=== PATIENT | female | born 1950 | race Caucasian/White ===

== ENCOUNTER → 2024-03-09 | Outpatient (CLI) | payer MEDICARE, OTHER ==
--- NOTE | 2024-03-10 08:12 | MR ---
EXAMINATION TYPE: MR brain wo/w con DATE OF EXAM: 03/09/2024 COMPARISON: None at this location HISTORY: Neoplasm of parietal lobe of brain CONTRAST: Performed utilizing 7.5 mL intravenous Gadavist gadolinium contrast. TECHNIQUE: Multiplanar, multiecho imaging on a 3.0 Melody magnet is performed through the brain. Stud y is performed within 24 hours of arrival to the hospital. The craniovertebral junction is normal. The pituitary is normal. Diffusion-weighted imaging is performed. Small curvilinear area of increased signal appears to be wi thin the cortex of the right parietal occipital lobe. There is hyperintensity adjacent to a fluid lik e structure in the right parietal-occipital region. And T2-weighted sequences there is a hyperintense lobular lesion within the right parietal-occipital centrum semiovale this measures 3.4 x 3.5 x 3.2 cm. There is surrounding vasogenic edema which has lo mattie mass effect on the adjacent sulci and posterior right lateral ventricle. The church have a thin ri m of enhancement. The fluidlike signal appears more intermediate on the inversion recovery weighted s equences. A discrete enhancing internal nodule is not identified. Differential diagnosis would include primary and metastatic neoplasm. Infectious etiologies parasitic infection should be considered. Abscess formation is felt to be less likely given the fluidlike appe arance and thin wall. There is a punctate hyperintensity within the subcortical white matter left temporal lobe. Scattered punctate white matter changes are through the deep white matter of the frontal and parietal lobes garrett ng the alva radiata bilaterally. Some subcortical white matter changes are present. Ventricles and sulci are otherwise appropriate for the patient age. No entrapment or hydrocephalus is evident. There is displacement and compression of the occipital horn right lateral ventricle from th e vasogenic edema. The remainder the ventricles appear appropriately positioned without compression o r displacement. IMPRESSION: 1. Lobular ring-enhancing lesion with adjacent vasogenic edema. A primary neoplasm or solitary metast asis should be considered. Infectious etiologies including parasitic infection and abscess should als o be considered.
== END | disposition home or self-care (01) ==
LOC: RADMRIMAIN 03-03 16:10
PROVIDERS: ATTEND Family Medicine
DX: C71.3 Malignant neoplasm of parietal lobe (principal)
CPT/HCPCS: 70553; A9585

== ENCOUNTER 2024-03-10 22:42 | Emergency (ER) | payer MEDICARE, OTHER ==
[2024-03-10 23:25] VITALS: TEMP 98
[2024-03-11] MEDS: LORazepam 2 MG/ML INJ IV STA (01:54)
--- NOTE | 2024-03-11 03:48 | ED ---
General Adult HPI - General Chief complaint: Recheck/Abnormal Lab/Rx Stated complaint: left sided weakness tremors Time Seen by Provider: 03/10/24 23:03 Source: patient, family Mode of arrival: EMS Limitations: physical limitation - History of Present Illness Initial comments: 74-year-old female presented to the ED with complaints of neurologic complaints. Per patient and , approximately a month ago while they were in [place]. Patient had an episode where she had uncontrolled shaking of her left upper arm and left lower leg. This eventually went away spontaneously. For this, patient had an MRI performed at this facility yesterday. Reports yesterday asymptomatic however today came back because she started to have same symptoms today with uncontrolled shaking of the left upper arm and left lower leg which seem to be worse than the prior episode. No chest pains or shortness of breath no fever or chills. No other complaints at this time. - Related Data Allergies Allergy/AdvReac Type Severity Reaction Status Date / Time No Known Allergies Allergy Verified 03/10/24 22:48 Review of Systems ROS Statement: Those systems with pertinent positive or pertinent negative responses have been documented in the HPI. ROS Other: All systems not noted in ROS Statement are negative. Past Medical History Past Medical History: Hyperlipidemia History of Any Multi-Drug Resistant Organisms: None Reported Past Surgical History: Joint Replacement Additional Past Surgical History / Comment(s): right hip Past Psychological History: No Psychological Hx Reported Smoking Status: Former smoker Past Alcohol Use History: Occasional Past Drug Use History: None Reported General Exam Limitations: physical limitation General appearance: alert Eye exam: Present: PERRL, EOMI Neck exam: Present: normal inspection Respiratory exam: Present: normal lung sounds bilaterally Cardiovascular Exam: Present: regular rate GI/Abdominal exam: Present: soft Neurological exam: Present: alert, oriented X3, other (Patient has good extraocular motions. Good facial sensation. No facial nerve deficits. Able to shrug both shoulders without difficulties. Unable to test for pronator drift secondary to symptoms. Patient has tremulousness of left upper extremity and left lower extremity.) Skin exam: Present: warm, dry Course Vital Signs 03/10/24 03/10/24 03/11/24 22:48 23:50 01:02 Temperature 98.0 F Pulse Rate 77 86 88 Respiratory 18 18 16 Rate Blood Pressure 176/76 165/91 153/96 O2 Sat by Pulse 93 L 93 L 92 L Oximetry 03/11/24 02:00 Temperature Pulse Rate 87 Respiratory 20 Rate Blood Pressure 134/68 O2 Sat by Pulse 96 Oximetry Medical Decision Making - Medical Decision Making Was pt. sent in by a medical professional or institution (, JEFF, HR CONSULTANT, urgent care, hospital, or fci...) When possible be specific @ -No Did you speak to anyone other than the patient for history (EMS, parent, family, police, friend...)? What history was obtained from this source @ -No Did you review nursing and triage notes (agree or disagree)? Why? @ -I reviewed and agree with nursing and triage notes Were old charts reviewed (outside hosp., previous admission, EMS record, old EKG, old radiological studies, urgent care reports/EKG's, fci records)? Report findings @ -Reviewed MRI. For further details please see MDM. Differential Diagnosis (chest pain, altered mental status, abdominal pain women, abdominal pain men, vaginal bleeding, weakness, fever, dyspnea, syncope, headache, dizziness, GI bleed, back pain, seizure, CVA, palpatations, mental health, musculoskeletal)? @ -Differential Altered Mental Status: Hypoglycemia, DKA, hypercapnia, ETOH, overdose, CO poisoning, trauma, myxedema coma, HTN encephalopathy, infection, encephalitis, psychosis, intercranial hemorrhage, hepatic encephalopathy, meningitis, CVA, this is not meant to be an all-inclusive list EKG interpreted by me (3pts min.). @ -None X-rays interpreted by me (1pt min.). @ -None done CT interpreted by me (1pt min.). @ -None done U/S interpreted by me (1pt. min.). @ -None done What testing was considered but not performed or refused? (CT, X-rays, U/S, labs)? Why? @ -None What meds were considered but not given or refused? Why? @ -None Did you discuss the management of the patient with other professionals (professionals i.e. [facility] Resendiz, HR CONSULTANT, lab, RT, psych nurse, social science instructor, negative notcher, teacher, safety security officer, assistant case manager)? Give summary @ -Case discussed with Dr. Chao of [facility], who accepted transfer the patient. Was smoking cessation discussed for >3mins.? @ -No Was critical care preformed (if so, how long)? @ -Yes, 35 minutes secondary to brain mass with possible progressive neurologic symptoms Were there social determinants of health that impacted care today? How? (Homelessness, low income, unemployed, alcoholism, drug addiction, transportation, low edu. Level, literacy, decrease access to med. care, nursing home, rehab)? @ -No Was there de-escalation of care discussed even if they declined (Discuss DNR or withdrawal of care, Hospice)? DNR status @ -No What co-morbidities impacted this encounter? (DM, HTN, Smoking, COPD, CAD, Cancer, CVA, ARF, Chemo, Hep., AIDS, mental health diagnosis, sleep apnea, morbid obesity)? @ -None Was patient admitted / discharged? Hospital course, mention meds given and route, prescriptions, significant lab abnormalities, going to OR and other pertinent info. @ -Transfer 74-year-old female presented to the ED with intermittent episodes of uncontrollable jerking movements of left upper and left lower extremity. Reported an episode approximately month ago and had an MRI performed. MRI performed yesterday reveals a hyperintense lobular lesion within the right parietal occipital centrum semiovale which measures 3.4 x 3.5 x 3.2 cm. There is surrounding vasogenic edema which has local mass effect on adjacent sulcal and posterior right lateral ventricle. The church have a thin rim of enhancement. Undiagnosed new problem with uncertain prognosis? @ -No Drug Therapy requiring intensive monitoring for toxicity (Heparin, Nitro, Insulin, Cardizem)? @ -No Were any procedures done? @ -No Diagnosis/symptom? @ -Brain lesion Acute, or Chronic, or Acute on Chronic? @ -Acute on chronic Uncomplicated (without systemic symptoms) or Complicated (systemic symptoms)? @ -Complicated Side effects of treatment? @ -No Exacerbation, Progression, or Severe Exacerbation? @ -No Poses a threat to life or bodily function? How? (Chest pain, USA, CA, pneumonia, PE, COPD, DKA, ARF, appy, cholecystitis, CVA, Diverticulitis, Homicidal, Suicidal, threat to staff... and all critical care pts) @ -Yes Disposition Clinical Impression: Brain lesion Disposition: OTHER INSTITUTION NOT DEFINED Condition: Good Referrals: Mario Jimenez DO [Primary Care Provider] - 1-2 days Time of Disposition: 23:30 - Out of Hospital Transfer - Req. Specs Out of Hospital Transfer - Requested Specifics: Other Emergency Center ([facility])
[2024-03-11 05:43] VITALS: BP 129/69; PULSE 72; RESP 22
== END 2024-03-11 05:32 | disposition other institution (70) ==
LOC: EC 22:42
DX: G93.9 Disorder of brain, unspecified (principal); Z87.891 Personal history of nicotine dependence
CPT/HCPCS: 96374; 99291

== ENCOUNTER → 2024-03-31 | Outpatient (CLI) | payer MEDICARE, OTHER ==
--- NOTE | 2024-04-03 12:01 | MR ---
EXAMINATION TYPE: MR brain wo/w con DATE OF EXAM: 03/31/2024 3:39 PM CLINICAL INDICATION:Female, 74 years old with history of C79.31 SECONDARY MALIGNANT NEOPLASM OF BRAIN ; [facility], Brain and Lung cancer, Hx brain tumor removal 03-15-2024, Hx of seizures COMPARISON: 03/09/2024 TECHNIQUE: Multi planar, multi sequence imaging was performed through the brain including: T1, T2, In version recovery, susceptibility weighted imaging and gradient echo imaging and Diffusion weighted im aging. The patient was then given intravenous contrast and multi planar, T1 fat-saturation images wer e obtained. IV Contrast: 7.5 cc Gadavist FINDINGS: Posttreatment changes with High T1 signal in the right parietal region. This has has decrea sed in size compared to prior cystic lesion and now has central high T1 signal. Now measuring 30 x 28 mm, previously mass measured 32 x 38 mm. Postcontrast imaging for enhancement is limited due to intr insic high T1 signal of this area. There is areas of restricted diffusion within this suspected hemor rhagic/proteinaceous fluid collection. There remains vasogenic edema throughout the right parietal re gion. Susceptibility weighted imaging demonstrates blooming artifact around the margins of this lesio n. Additional scattered nonspecific white matter changes are seen throughout the brain. After administration of gadolinium, no additional abnormal enhancement is seen. The chauhan-white junctions, ventricular system, basal cisterns appear unremarkable. Diffusion-weighted imaging shows no evidence of restricted diffusion to suggest acute/subacute infarct. Intracranial ar terial flow voids are maintained. Midline structures show no abnormality. Scattered foci of high T2 s ignal intensity are seen within the periventricular white matter. The susceptibility weighted images do not reveal any evidence for micro-hemorrhage. The bone marrow signal is within normal limits. Postsurgical changes right parietal bone. Paranasal sinuses and mastoid air cells: No significant paranasal sinus disease. Visualized orbits: Orbital contents are intact. IMPRESSION: 1. Post treatment changes with decrease in size of the surgical bed compared to the previous cystic lesion. Area now demonstrating intrinsic high T1 signal likely representing proteinaceous/hemorrhagic contents. Evaluation for postcontrast enhancement is therefore limited due to its appearance however the size has decreased. Consider special subtraction imaging on follow-up MRI brain imaging. 2. No new abnormal areas of enhancement outside of the surgical bed.. 3. Nonspecific white matter changes, likely related to small vessel ischemic disease.
== END | disposition home or self-care (01) ==
LOC: RADMRIMAIN 14:23
PROVIDERS: ATTEND Radiology Radiation Oncology
DX: G93.89 Other specified disorders of brain (principal); C79.31 Secondary malignant neoplasm of brain; C34.90 Malignant neoplasm of unspecified part of unspecified bronchus or lung; Z98.890 Other specified postprocedural states; Z86.69 Personal history of other diseases of the nervous system and sense organs
CPT/HCPCS: 70553; A9585

== ENCOUNTER → 2024-04-17 | Outpatient (CLI) | payer MEDICARE, OTHER ==
--- NOTE | 2024-04-18 13:37 | PE ---
EXAMINATION TYPE: PET CT fusion skull to thigh DATE OF EXAM: 04/17/2024 CLINICAL INDICATION:Female, 74 years old with history of C34.12; TECHNIQUE: Following the intravenous administration of 12.77 mCi of F-18 FDG, whole body images are performed from the skull base to the midthigh. Images are reviewed on the computer in the coronal, axial, and sagittal planes. Reconstructed rotating images are created on independent workstation and reviewed on the computer. A non-contrast CT is performed in conjunction with the PET scan. Glucose level 111 mg/dL CT DLP: 511 mGycm, Automated exposure control for dose reduction was used. COMPARISON: CT None, PET/CT None, FINDINGS: Mediastinal SUV mean is 2.2. Hepatic parenchyma SUV mean is 3.0. SKULL BASE AND NECK: No suspicious radiotracer activity. CHEST, MEDIASTINUM, AND HILAR REGION: * Left upper lung cavitary lesion measuring 9.0 x 6.1 cm max SUV 24.3. * Left breast parenchymal uptake max SUV 4.9. * Soft tissue nodule in the left chest sidewall at the level of the diaphragm measuring up to 15 mm Max SUV 19.4. * Mildly elevated FDG activity within the left axillary lymph nodes which are not enlarged by size c riteria largest measuring 7 mm in short axis max SUV 2.7. * Left pulmonary hilum lymph node max SUV 11.4. * Left supraclavicular lymph node measuring 9 mm in short axis max SUV 8.6. * Linear uptake in the left lower lobe posterolaterally to atelectasis and/or airspace disease. ABDOMEN AND PELVIS: No suspicious radiotracer activity. MUSCULOSKELETAL STRUCTURES: No suspicious radiotracer activity. OTHER CT: Craniotomy changes with fixation hardware. Atherosclerosis of the arterial vasculature incl uding the coronary arteries. Mild aortic valve leaflet calcifications. Right hip arthroplasty appears intact. Lipomatous hypertrophy changes of the pancreatic head and neck and uncinate process. IMPRESSION: 1. Left upper lung cavitary mass concerning with a statically No evidence involving the left perihil ar region, left subclavicular region and along the left diaphragm inferiorly. Mild uptake with a left axillary lymph nodes which are not enlarged for size are indeterminate. 2. Abnormal FDG activity within the left fibroglandular tissue. Correlate with mammography for breas t malignancy.
== END | disposition home or self-care (01) ==
LOC: RADPETMAIN 11:39
PROVIDERS: ATTEND Radiology Radiation Oncology
DX: C34.12 Malignant neoplasm of upper lobe, left bronchus or lung (principal); R91.8 Other nonspecific abnormal finding of lung field
CPT/HCPCS: 78815; A9552

== ENCOUNTER 2024-04-30 12:00 | Inpatient (IN) | payer MEDICARE, OTHER ==
--- NOTE | 2024-04-30 12:06 | ED ---
SOB HPI - General Source: patient, family, RN notes reviewed Mode of arrival: wheelchair Limitations: no limitations - History of Present Illness MD Complaint: shortness of breath <Erica Huddleston - Last Filed: 04/30/24 12:05> - General Source: patient, family, RN notes reviewed Mode of arrival: wheelchair Limitations: no limitations - History of Present Illness MD Complaint: shortness of breath <Clifford Claire - Last Filed: 04/30/24 14:31> - General Chief Complaint: Shortness of Breath Stated Complaint: SOB Time Seen by Provider: 04/30/24 12:04 - History of Present Illness Initial Comments: Quick Note: This is a 74 year old female who presents to the emergency department for low oxygen saturation. Patient's states that the home health nurse found her oxygen to be in the 40s and they called her PCP who instructed her to go to the emergency department for evaluation. Patient reports shortness of breath over the last week. Denies any chest pain. (Erica Huddleston) Patient is a 74-year-old female present to the emergency department with weakness and dyspnea. Patient has had intermittent dyspnea over the past week. No cough. Patient is a poor historian and majority of history comes from family. Patient did have recent brain surgery with radiation around a month ago. PET scan showed large mass in the lung. Patient is still awaiting therapy for this. Patient did have left-sided weakness prior to arrival however that he has near resolved. (Clifford Claire) - Related Data Home Medications Medication Instructions Recorded Confirmed Atorvastatin [Lipitor] 10 mg PO HS 04/30/24 04/30/24 amLODIPine [Norvasc] 5 mg PO DAILY 04/30/24 04/30/24 dexAMETHasone [Decadron] See Taper PO DIRECTED 04/30/24 04/30/24 levETIRAcetam [Keppra] 500 mg PO BID 04/30/24 04/30/24 lisinopriL 40 mg PO DAILY 04/30/24 04/30/24 Allergies Allergy/AdvReac Type Severity Reaction Status Date / Time No Known Allergies Allergy Verified 04/30/24 13:17 Review of Systems ROS Other: All systems not noted in ROS Statement are negative. <Erica Huddleston - Last Filed: 04/30/24 12:05> ROS Other: All systems not noted in ROS Statement are negative. Constitutional: Denies: fever Eyes: Denies: eye pain ENT: Denies: ear pain Respiratory: Reports: as per HPI, dyspnea Cardiovascular: Denies: chest pain Endocrine: Denies: fatigue Gastrointestinal: Denies: abdominal pain Neurological: Reports: as per HPI, weakness. Denies: headache <Clifford Claire - Last Filed: 04/30/24 14:31> ROS Statement: Those systems with pertinent positive or pertinent negative responses have been documented in the HPI. Past Medical History Past Medical History: Hyperlipidemia History of Any Multi-Drug Resistant Organisms: None Reported Past Surgical History: Joint Replacement Additional Past Surgical History / Comment(s): right hip Past Psychological History: No Psychological Hx Reported Smoking Status: Former smoker Past Alcohol Use History: Occasional Past Drug Use History: None Reported <Erica Huddleston - Last Filed: 04/30/24 12:05> General Exam <Erica Huddleston - Last Filed: 04/30/24 12:05> Limitations: no limitations General appearance: alert, in no apparent distress Head exam: Present: normocephalic Eye exam: Present: normal appearance, PERRL, EOMI ENT exam: Present: normal oropharynx Neck exam: Present: normal inspection Respiratory exam: Present: normal lung sounds bilaterally Cardiovascular Exam: Present: regular rate, normal rhythm GI/Abdominal exam: Present: soft. Absent: tenderness Extremities exam: Present: normal inspection. Absent: pedal edema, calf tender ness Neurological exam: Present: alert, oriented X3, CN II-XII intact Expanded Neurological exam: Present: protecting the airway Speech: Present: fluid speech Cranial nerves: EOM's Intact: Normal Sensory exam: Upper Extremity Light Touch: Normal, Lower Extremity Light Touch: Normal Motor strength exam: RUE: 5, LUE: 5, RLE: 5, LLE: 4 Eye Response: (4) open spontaneously Motor Response: (6) obeys commands Verbal Response: (5) oriented Psychiatric exam: Present: normal affect, normal mood Skin exam: Present: normal color <Clifford Claire - Last Filed: 04/30/24 14:31> - General Exam Comments Initial Comments: Visual Physical Exam Vital signs reviewed General: Well-appearing, nontoxic, no acute distress. Head: Normocephalic, atraumatic Eyes: PERRLA, EOMI ENT: Airway patent Chest: Nonlabored breathing Skin: No visual rash, normal skin tone Neuro: Alert and oriented 3 Musculoskeletal: No gross abnormalities (Erica Huddleston) Course Vital Signs 04/30/24 04/30/24 12:07 13:24 Temperature 97.6 F Pulse Rate 74 62 Respiratory 16 18 Rate Blood Pressure 113/77 123/51 O2 Sat by Pulse 74 L 94 L Oximetry Medical Decision Making <Erica Huddleston - Last Filed: 04/30/24 12:05> - Lab Data Result diagrams: 04/30/24 12:38 04/30/24 12:40 <Clifford Claire - Last Filed: 04/30/24 14:31> - Medical Decision Making I performed the QuickNote portion of this chart. Signed Erica Huddleston PA-C. (Erica Huddleston) EKG interpreted by myself shows sinus rhythm with a rate of 68. AR 164. QRS 83. QT 359. QTc 377. Normal axis. Low QRS voltage. T wave inversion V1 through V3 Was pt. sent in by a medical professional or institution ([facility], CREATIVE PERFUMER, urgent care, hospital, or correction...) When possible be specific @ -No Did you speak to anyone other than the patient for history (EMS, parent, family, police, friend...)? What history was obtained from this source @ - is present and helps provide history including recent surgery Did you review nursing and triage notes (agree or disagree)? Why? @ -I reviewed and agree with nursing and triage notes Were old charts reviewed (outside hosp., previous admission, EMS record, old EKG, old radiological studies, urgent care reports/EKG's, correction records)? Report findings @ -PET scan reviewed with multiple lesion Differential Diagnosis (chest pain, altered mental status, abdominal pain women, abdominal pain men, vaginal bleeding, weakness, fever, dyspnea, syncope, headache, dizziness, GI bleed, back pain, seizure, CVA, palpatations, mental he alth, musculoskeletal)? @ -MDM differential dyspnea. MDM differential weakness differential Dyspnea: Coronary syndrome, arrhythmia, tamponade, asthma, COPD, pulmonary embolism, pneumonia, pneumothorax, pulmonary effusion, anaphylaxis, diabetic ketoacidosis, flailed chest, pulmonary contusion, diaphragmatic rupture, anemia, neuromuscular, this is not meant to be an all-inclusive list. Differential Weakness: Hypoglycemia, shock, sepsis, hyponatremia, anemia, infection, MS, ETOH, adverse medicine reaction, overdose, stroke, this is not meant to be an all-inclusive list. EKG interpreted by me (3pts min.). @ -As above X-rays interpreted by me (1pt min.). @ -None done CT interpreted by me (1pt min.). @ -CT scan of the brain shows right posterior parietal encephalomalacia with postsurgical changes. CT scan of the chest shows left upper lobe mass with central abscess or necrosis. Also concern for parenchymal changes right upper lobe U/S interpreted by me (1pt. min.). @ -None done What testing was considered but not performed or refused? (CT, X-rays, U/S, labs)? Why? @ -None What meds were considered but not given or refused? Why? @ -None Did you discuss the management of the patient with other professionals (professionals i.e. , PA, CREATIVE PERFUMER, lab, RT, psych nurse, social services analyst, computer lab assistant, teacher, signals officer, lead case manager)? Give summary @ -Case discussed with Dr. Hercules who did evaluate patient and will consult. Case also discussed with Dr. Espinoza who will admit covering Dr. Jimenez. Was smoking cessation discussed for >3mins.? @ -No Was critical care preformed (if so, how long)? @ -No Were there social determinants of health that impacted care today? How? (Homele ssness, low income, unemployed, alcoholism, drug addiction, transportation, low edu. Level, literacy, decrease access to med. care, assisted, rehab)? @ -No Was there de-escalation of care discussed even if they declined (Discuss DNR or withdrawal of care, Hospice)? DNR status @ -No What co-morbidities impacted this encounter? (DM, HTN, Smoking, COPD, CAD, Cancer, CVA, ARF, Chemo, Hep., AIDS, mental health diagnosis, sleep apnea, morbid obesity)? @ -Metastatic lung cancer Was patient admitted / discharged? Hospital course, mention meds given and route, prescriptions, significant lab abnormalities, going to OR and other pertinent info. @ -Patient presents with 1 week of dyspnea progressive as well as left-sided weakness today. Brain CT without new abnormalities, weakness likely related to postradiation swelling. This was discussed with patient's radiation oncologist. Patient chest x-ray shows lung mass with concern for infection. Blood culture and lactic acid and IV antibiotics have all been started. Infection concern at 1420. Patient does not meet SIRS criteria. Undiagnosed new problem with uncertain prognosis? @ -No Drug Therapy requiring intensive monitoring for toxicity (Heparin, Nitro, Insulin, Cardizem)? @ -No Were any procedures done? @ -No Diagnosis/symptom? @ -Dyspnea, left-sided weakness Acute, or Chronic, or Acute on Chronic? @ -Acute, acute Uncomplicated (without systemic symptoms) or Complicated (systemic symptoms)? @ -Default Side effects of treatment? @ -No Exacerbation, Progression, or Severe Exacerbation? @ -No Poses a threat to life or bodily function? How? (Chest pain, USA, MS, pneumonia, PE, COPD, DKA, ARF, appy, cholecystitis, CVA, Diverticulitis, Homicidal, Suicidal, threat to staff... and all critical care pts) @ -Threat to pulmonary and organ dysfunction and neurological (Clifford Claire) - Lab Data Lab Results 04/30/24 04/30/24 04/30/24 Range/Units 12:38 12:38 12:38 WBC 11.9 H (3.8-10.6) k/uL RBC 4.43 (3.80-5.40) m/uL Hgb 11.9 (11.4-16.0) gm/dL Hct 38.7 (34.0-46.0) % MCV 87.3 (80.0-100.0) fL MCH 26.9 (25.0-35.0) pg MCHC 30.8 L (31.0-37.0) g/dL RDW 20.7 H (11.5-15.5) % Plt Count 178 (150-450) k/uL MPV 8.2 Neutrophils % 89 % Lymphocytes % 7 % Monocytes % 2 % Eosinophils % 1 % Basophils % 0 % Neutrophils # 10.6 H (1.3-7.7) k/uL Lymphocytes # 0.8 L (1.0-4.8) k/uL Monocytes # 0.3 (0-1.0) k/uL Eosinophils # 0.1 (0-0.7) k/uL Basophils # 0.0 (0-0.2) k/uL Hypochromasia Slight Anisocytosis Moderate PT 10.6 (10.0-12.5) sec INR 1.0 (<1.2) APTT 20.2 L (22.0-30.0) sec Sodium (137-145) mmol/L Potassium (3.5-5.1) mmol/L Chloride (98-107) mmol/L Carbon Dioxide (22-30) mmol/L Anion Gap mmol/L BUN (7-17) mg/dL Creatinine (0.52-1.04) mg/dL Est GFR (CKD-EPI)AfAm (>60 ml/min/1.73 sqM) Est GFR (CKD-EPI)NonAf (>60 ml/min/1.73 sqM) Glucose (74-99) mg/dL Plasma Lactic Acid Florentino 4.1 H* (0.7-2.0) mmol/L Calcium (8.4-10.2) mg/dL Magnesium (1.6-2.3) mg/dL Total Bilirubin (0.2-1.3) mg/dL AST (14-36) U/L ALT (4-34) U/L Alkaline Phosphatase (38-126) U/L NT-Pro-B Natriuret Pep pg/mL Total Protein (6.3-8.2) g/dL Albumin (3.5-5.0) g/dL Influenza Type A (PCR) (Not Detectd) Influenza Type B (PCR) (Not Detectd) RSV (PCR) (Not Detectd) SARS-CoV-2 (PCR) (Not Detectd) 04/30/24 04/30/24 Range/Units 12:38 12:40 WBC (3.8-10.6) k/uL RBC (3.80-5.40) m/uL Hgb (11.4-16.0) gm/dL Hct (34.0-46.0) % MCV (80.0-100.0) fL MCH (25.0-35.0) pg MCHC (31.0-37.0) g/dL RDW (11.5-15.5) % Plt Count (150-450) k/uL MPV Neutrophils % % Lymphocytes % % Monocytes % % Eosinophils % % Basophils % % Neutrophils # (1.3-7.7) k/uL Lymphocytes # (1.0-4.8) k/uL Monocytes # (0-1.0) k/uL Eosinophils # (0-0.7) k/uL Basophils # (0-0.2) k/uL Hypochromasia Anisocytosis PT (10.0-12.5) sec INR (<1.2) APTT (22.0-30.0) sec Sodium 140 (137-145) mmol/L Potassium 4.4 (3.5-5.1) mmol/L Chloride 108 H (98-107) mmol/L Carbon Dioxide 28 (22-30) mmol/L Anion Gap 4 mmol/L BUN 29 H (7-17) mg/dL Creatinine 0.54 (0.52-1.04) mg/dL Est GFR (CKD-EPI)AfAm >90 (>60 ml/min/1.73 sqM) Est GFR (CKD-EPI)NonAf >90 (>60 ml/min/1.73 sqM) Glucose 136 H (74-99) mg/dL Plasma Lactic Acid Florentino (0.7-2.0) mmol/L Calcium 8.6 (8.4-10.2) mg/dL Magnesium 2.3 (1.6-2.3) mg/dL Total Bilirubin 0.5 (0.2-1.3) mg/dL AST 28 (14-36) U/L ALT 27 (4-34) U/L Alkaline Phosphatase 133 H (38-126) U/L NT-Pro-B Natriuret Pep 568 pg/mL Total Protein 5.6 L (6.3-8.2) g/dL Albumin 3.2 L (3.5-5.0) g/dL Influenza Type A (PCR) Not Detected (Not Detectd) Influenza Type B (PCR) Not Detected (Not Detectd) RSV (PCR) Not Detected (Not Detectd) SARS-CoV-2 (PCR) Not Detected (Not Detectd) Disposition <Erica Huddleston - Last Filed: 04/30/24 12:05> Is patient prescribed a controlled substance at d/c from ED?: No Time of Disposition: 14:31 <Clifford Claire - Last Filed: 04/30/24 14:31> Clinical Impression: Dyspnea, Left-sided weakness, Lung mass Disposition: ADMITTED IP TO THIS [facility] Condition: Serious Referrals: Mario Jimenez DO [Primary Care Provider] - 1-2 days
[2024-04-30 13:05] LABS: Anisocytosis Moderate; Basophils % (A) 0 %; Eosinophils # (A) 0.1 k/uL (0-0.7); Eosinophils % (A) 1 %; HCT 38.7 % (34.0-46.0); HGB 11.9 gm/dL (11.4-16.0); Hypochromasia Slight; Lymphocytes # (A) 0.8 k/uL (1.0-4.8); Lymphocytes % (A) 7 %; MCH 26.9 pg (25.0-35.0); MCHC 30.8 g/dL (31.0-37.0); MCV 87.3 fL (80.0-100.0); Mean Platelet Volume 8.2; Monocytes # (A) 0.3 k/uL (0-1.0); Monocytes % (A) 2 %; Neutrophils # (A) 10.6 k/uL (1.3-7.7); Neutrophils % (A) 89 %; Platelet Count 178 k/uL (150-450); RBC 4.43 m/uL (3.80-5.40); RDW 20.7 % (11.5-15.5); WBC 11.9 k/uL (3.8-10.6)
[2024-04-30 13:14] LABS: ALT 27 U/L (4-34); AST 28 U/L (14-36); African American GFR (CKD) >90 (>60 ml/min/1.73 sqM); Albumin 3.2 g/dL (3.5-5.0); Alkaline Phosphatase 133 U/L (38-126); Anion Gap 4 mmol/L; Blood Urea Nitrogen 29 mg/dL (7-17); Calcium 8.6 mg/dL (8.4-10.2); Carbon Dioxide 28 mmol/L (22-30); Chloride 108 mmol/L (98-107); Glucose 136 mg/dL (74-99); Magnesium 2.3 mg/dL (1.6-2.3); Non-African American GFR(CKD) >90 (>60 ml/min/1.73 sqM); Potassium 4.4 mmol/L (3.5-5.1); Sodium 140 mmol/L (137-145); Total Bilirubin 0.5 mg/dL (0.2-1.3); Total Protein 5.6 g/dL (6.3-8.2)
[2024-04-30 13:22] LABS: NT-Pro-B-Type Natriuretic Pept 568 pg/mL
[2024-04-30 13:28] LABS: Prothrombin Time 10.6 sec (10.0-12.5)
[2024-04-30 13:35] LABS: Partial Thromboplastin Time 20.2 sec (22.0-30.0)
--- NOTE | 2024-04-30 14:06 | CT ---
EXAMINATION TYPE: CT brain wo con DATE OF EXAM: 04/30/2024 COMPARISON: None HISTORY: weakness and SOB CT DLP: 1091.4 mGycm Automated exposure control for dose reduction was used. Findings: The ventricles, basal cisterns and sulci over the convexities are within normal limits for the patien t's age. And there is no mass effect or shift of midline structures. There is a focal area of decreased density in the right parietal cortex and subcortical white matter consistent with encephalomalacia from prior surgery. There is a craniotomy defect adjacent in the rig ht parietal bone. There is mild decreased density in the periventricular white matter consistent with mild chronic isch emic white matter demyelination. There is no acute intra or extra-axial hemorrhage. The posterior fossa including the brainstem, fourth ventricle and cerebellar pontine angles appear no rmal. Intraorbital contents appear normal and symmetric. Visualized paranasal sinuses and mastoid air cells are well aerated. IMPRESSION: 1. Age appropriate senescent changes. 2. No acute bleed or mass effect. 3. Right parietal craniotomy defect and adjacent encephalomalacia within the right parietal cortex an d subcortical white matter.
--- NOTE | 2024-04-30 14:13 | CT ---
EXAMINATION TYPE: CT angio chest DATE OF EXAM: 04/30/2024 1:56 PM COMPARISON: None HISTORY: weakness and SOB CT DLP: 393.4 mGycm Automated exposure control for dose reduction was used. CONTRAST: CTA scan of the thorax is performed with IV Contrast, patient injected with 80ml mL of Isovue 370, pu lmonary embolism protocol. 3-D postprocessing was performed. FINDINGS: There is diffuse groundglass density in both lungs greatest in the right upper lobe. In the left uppe r lobe there is a large 8.1 by 9.0 cm left upper lobe mass with cystic air /fluid level consistent wi th a large abscess or necrotic neoplasm. There is no pleural effusion or pneumothorax. The great vessels of the chest are normal and there are no filling defects within the pulmonary arter ial circulation to suggest pulmonary embolus. There is an enlarged right paratracheal lymph node measuring 17 mm and a 11 mm precarinal lymph node. There is an 11 mm left hilar lymph node. Limited scanning through the upper abdomen reveals no gross abnormality. The osseous structures are intact. IMPRESSION: 1. 9.0 x 1 cm left upper lobe mass with air-fluid level consistent with large abscess or necrotic kimberli plasm. 2. Diffuse groundglass density in both lungs greatest in the right upper lobe consistent with acute p neumonia or pulmonary edema. 3. Mild mediastinal and left hilar adenopathy. 4. No evidence of pulmonary embolism.
[2024-04-30] MEDS ORDERED: PNEUMONIA PROTOCOL UTILIZED 1 EACH MISC PO PRN (14:24)
[2024-04-30] MEDS: SODIUM CHLORIDE 0.9% 1,000 ML IV SCH (16:48)
[2024-04-30] MEDS: DEXAMETHASONE SOD PHOSPHATE 10 MG/ML 1 ML VIAL IVP SCH (16:48)
[2024-04-30] MEDS: IPRATROPIUM-ALBUTEROL 3 ML NEB INHALATION SCH (17:03)
[2024-04-30] MEDS: AZITHROMYCIN 500 MG in SODIUM CHLORIDE 0.9% 250 ML IVPB STA (17:13)
[2024-04-30] MEDS: levETIRAcetam 500 MG TAB PO SCH (21:24)
[2024-04-30] MEDS: ATORVASTATIN 10 MG TAB PO SCH (21:24)
--- NOTE | 2024-04-30 21:57 | P.HPIM ---
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 Patient is on Decadron at home which is being tapered down.. Patient presents to ER with complaints of generalized weakness and altered me ntal status and new onset left-sided weakness. As per family patient was also noted to have hypoxia with pulse ox 40%. CT of the brain on admission showed age-related appropriate senescent changes. No edema. Right parietal craniotomy defect and a decent encephalomalacia within the right parietal cortex and subcortical white matter. CTA chest showed 9 x 1 cm left upper lobe mass with air-fluid level consistent with large abscess or necrotic neoplasm. Diffuse groundglass densities in both lungs greatest in the left upper lobe consistent with acute pneumonia or pulmonary edema. Mild mediastinal and left hilar adenopathy. No evidence of PE. EKG showed sinus rhythm with occasional supraventricular premature complexes. Laboratory showed WBC 11.9 hemoglobin 11.9, platelets 178 sodium 140 potassium 108 bicarb is 28 BUN 29 and creatinine 0.54 blood sugar 136 and lactic acid 4.1 alk phos 133 albumin 3.2 Patient is currently on oxygen via nasal cannula at 3 L Review of Systems Constitutional: Patient denies any fever or chills . Patient does have generalized weakness and fatigue. s. Abdomen: Patient denied nausea vomiting and diarrhea and abdominal pain. Cardiovascular: Patient denies any chest pain. Positive short of breath no palpitations. No leg swelling Respiratory: Does have cough without sputum production. Positive for shortness of breath Neurologic: Patient denied any numbness or tingling. no headache. Musculoskeletal: Patient denies any complaints of joint swelling or deformity. Skin: Negative Psychiatric: Negative Endocrine: No heat or cold intolerance. No recent weight gain. Genitourinary: No dysuria or hematuria. All other 14 point ROS negative except the above Past Medical History Past Medical History: Hyperlipidemia History of Any Multi-Drug Resistant Organisms: None Reported Past Surgical History: Joint Replacement Additional Past Surgical History / Comment(s): right hip Past Psychological History: No Psychological Hx Reported Smoking Status: Former smoker Past Alcohol Use History: Occasional Past Drug Use History: None Reported Medications and Allergies Home Medications Medication Instructions Recorded Confirmed Type Atorvastatin [Lipitor] 10 mg PO HS 04/30/24 04/30/24 History amLODIPine [Norvasc] 5 mg PO DAILY 04/30/24 04/30/24 History dexAMETHasone [Decadron] See Taper PO DIRECTED 04/30/24 04/30/24 History levETIRAcetam [Keppra] 500 mg PO BID 04/30/24 04/30/24 History lisinopriL 40 mg PO DAILY 04/30/24 04/30/24 History Allergies Allergy/AdvReac Type Severity Reaction Status Date / Time No Known Allergies Allergy Verified 04/30/24 13:17 Physical Exam Vitals: Vital Signs Temp Pulse Resp BP Pulse Ox 04/30/24 21:00 64 18 108/50 95 04/30/24 20:20 63 04/30/24 20:11 58 L 04/30/24 20:00 60 18 128/58 95 04/30/24 17:12 62 04/30/24 17:03 58 L 04/30/24 16:45 55 L 24 123/74 95 04/30/24 16:00 75 L 04/30/24 13:24 62 18 123/51 94 L 04/30/24 12:07 97.6 F 74 16 113/77 74 L Intake and Output 04/30/24 04/30/24 04/30/24 06:59 14:59 22:59 Other: Weight 71.214 kg PHYSICAL EXAMINATION: Patient is lying in the bed comfortably, no acute distress, awake alert and oriented. Patient is weak and lethargic.. HEENT: Normocephalic. Neck is supple. Pupils reactive. Nostrils clear. Oral cavity is moist. Neck reveals no JVD, carotid bruits, or thyromegaly. CHEST EXAMINATION: Trachea is central. Symmetrical expansion. Lung genao clear to auscultation and percussion. CARDIAC: Normal S1, S2 with no gallops. No murmurs ABDOMEN: Soft. Bowel sounds normal. No organomegaly. No abdominal bruits. Extremities: reveal no edema. No clubbing or cyanosis Neurologically awake, alert, oriented x3. Motor strength 5 to 5 out of 4 extremities. No gross focal deficits noted Skin: No rash or skin lesions. Psychiatric: Coperative. Nonsuicidal Musculoskeletal: No joint swelling or deformity. Results CBC & Chem 7: 05/01/24 05:45 05/01/24 05:45 Labs: Abnormal Lab Results - Last 24 Hours (Table) 04/30/24 04/30/24 04/30/24 Range/Units 12:38 12:38 12:38 WBC 11.9 H (3.8-10.6) k/uL MCHC 30.8 L (31.0-37.0) g/dL RDW 20.7 H (11.5-15.5) % Neutrophils # 10.6 H (1.3-7.7) k/uL Lymphocytes # 0.8 L (1.0-4.8) k/uL APTT 20.2 L (22.0-30.0) sec Chloride (98-107) mmol/L BUN (7-17) mg/dL Glucose (74-99) mg/dL Plasma Lactic Acid Florentino 4.1 H* (0.7-2.0) mmol/L Alkaline Phosphatase (38-126) U/L Total Protein (6.3-8.2) g/dL Albumin (3.5-5.0) g/dL 04/30/24 04/30/24 04/30/24 Range/Units 12:40 16:36 20:16 WBC (3.8-10.6) k/uL MCHC (31.0-37.0) g/dL RDW (11.5-15.5) % Neutrophils # (1.3-7.7) k/uL Lymphocytes # (1.0-4.8) k/uL APTT (22.0-30.0) sec Chloride 108 H (98-107) mmol/L BUN 29 H (7-17) mg/dL Glucose 136 H (74-99) mg/dL Plasma Lactic Acid Florentino 3.4 H* 3.2 H* (0.7-2.0) mmol/L Alkaline Phosphatase 133 H (38-126) U/L Total Protein 5.6 L (6.3-8.2) g/dL Albumin 3.2 L (3.5-5.0) g/dL Thrombosis Risk Factor Assmnt - DVT/VTE Prophylaxis DVT/VTE Prophylaxis: Pharmacologic Prophylaxis ordered Assessment and Plan Assessment: Acute hypoxic respiratory failure requiring 3 L oxygen via cannula cannula. Patient was hypoxic with pulse ox 74% in the ER Acute diffuse bilateral groundglass pulmonary infiltrates mainly in the left upper lobe consistent with acute pneumonia or pulmonary edema. 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 Patient is status post right followed by radiation therapy. Left-sided weakness. CT head showed no no acute abnormalities. Findings consistent with encephalomalacia related to previous craniotomy and resection of brain tumor. Lactic acidosis Hypertension Hyperlipidemia DVT prophylaxis with heparin subcu Plan: Patient will be continued on oxygen supplementation. Gentle IV hydration. Follow-up lactic acid level. Patient was started on antibiotics ceftriaxone azithromycin. Procalcitonin level was ordered. Seizure prophylaxis with Keppra as per neurology recommendations. Patient will be continued on dexamethasone 6 mg IV every 6 hourly Current pain management and follow-up closely. Prognosis is guarded. Time with Patient: Greater than 30
--- NOTE | 2024-04-30 23:37 | P.CNPUL ---
History of Present Illness Consult date: 04/30/24 Reason for consult: dyspnea History of present illness: This is a 74-year-old female patient with metastatic squamous cell carcinoma of the lung. 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 Radiation therapy was done locally at [facility] on [facility] by Dr. Johnathan Mars. Following that, the patient was placed on Decadron. As Decadron was being weaned off, the patient developed some generalized weakness and altered mentation. Based on that, the dose was upped again by radiation oncology. This morning, the patient came into the emergency for new onset left-sided weakness. CAT scan of the brain was done in the emergency department that showed age-appropriate senescent changes. There was focal area of decreased density in the right parietal cortex and subcortical white matter consistent with encephalomalacia related to previous brain surgery. There is also evidence of craniotomy. There is also mild decreased density in the periventricular white matter change. No altered mentation. No seizure activity. CT angiogram of the chest was also done in the emergency department and the patient was found to have mild mediastinal and left hilar lymphadenopathy, a large cavitating mass measuring 9 x 8 cm in size in the left upper lobe with cystic air/fluid within the tumor and diffuse groundglass density involving both lungs more so on the right upper lobe. Note that the patient's PET/CT that was done on 04/18/2024 showed evidence consistent with metastatic disease including a left upper lobe cavitating mass with central cavitation and SUV of 24.3. Left breast parenchymal uptake with an SUV of 4.9, soft tissue nodule in the left chest sidewall at the level of the diaphragm with an SUV of 19.4, FDG uptake in the left axillary lymph node with an SUV of 2.7, left pulmonary hilar lymph node measuring SUV of 11.4 and left supraclavicular lymph node with an SUV of 8.6 and uptake in the left lower lobe along with some atelectasis. No skeletal uptake. No intra-abdominal uptake. At this point in time, the patient is on 3 L oxygen by nasal cannula with a pulse ox of 95%. The viral screen came back negative. proBNP level is 568. Lactic acid level was at 4.1 dropped down to 3.2. Electrolytes are within normal limits with a BUN of 29 and a creatinine of 0.5. Normal coagulation profile. WBC count 11.9 with a hemoglobin 11.9 and a platelet count of 179. The patient was restarted on Decadron 6 mg IV every 6 hours. Patient was also started on a combination of Rocephin and Zithromax. These are essentially empiric antibiotic coverage. proBNP level is at 568. Review of Systems Constitutional: Reports fatigue, Reports weakness Eyes: denies as per HPI, denies blurred vision, denies bulging eye, denies decreased vision, denies diplopia, denies discharge, denies dry eye, denies irritation, denies itching, denies pain, denies photophobia, denies loss of peripheral vision, denies loss of vision, denies tunnel vision/blind spots Ears: deny: decreased hearing, ear discharge, earache, tinnitus Ears, nose, mouth and throat: Reports as per HPI Breasts: absent: as per HPI, change in shape, gynecomastia, masses, nipple discharge, pain, skin changes, swelling Cardiovascular: Reports decreased exercise tolerance, Reports dyspnea on exertion Respiratory: Reports dyspnea Gastrointestinal: Reports as per HPI Genitourinary: Reports as per HPI Menstruation: Reports as per HPI Musculoskeletal: Reports as per HPI Musculoskeletal: absent: ankle pain, ankle stiffness, ankle swelling, as per HPI, elbow pain, elbow stiffness, elbow swelling, foot pain, foot stiffness, foot swelling, hand pain, hand stiffness, hand swelling, hip pain, hip stiffness, hip swelling, knee pain, knee stiffness, knee swelling, shoulder pain, shoulder stiffness, shoulder swelling, wrist pain, wrist stiffness, wrist swelling Integumentary: Reports as per HPI Neurological: Reports as per HPI, Reports weakness Psychiatric: Reports as per HPI Endocrine: Reports as per HPI Hematologic/Lymphatic: Reports as per HPI Allergic/Immunologic: Reports as per HPI Past Medical History Past Medical History: Cancer, Hyperlipidemia Additional Past Medical History / Comment(s): Metastatic squamous cell carcinoma of the lung History of Any Multi-Drug Resistant Organisms: None Reported Past Surgical History: Joint Replacement Additional Past Surgical History / Comment(s): right hip Past Psychological History: No Psychological Hx Reported Smoking Status: Former smoker Past Alcohol Use History: Occasional Past Drug Use History: None Reported Medications and Allergies Home Medications Medication Instructions Recorded Confirmed Type Atorvastatin [Lipitor] 10 mg PO HS 04/30/24 04/30/24 History amLODIPine [Norvasc] 5 mg PO DAILY 04/30/24 04/30/24 History dexAMETHasone [Decadron] See Taper PO DIRECTED 04/30/24 04/30/24 History levETIRAcetam [Keppra] 500 mg PO BID 04/30/24 04/30/24 History lisinopriL 40 mg PO DAILY 04/30/24 04/30/24 History Allergies Allergy/AdvReac Type Severity Reaction Status Date / Time No Known Allergies Allergy Verified 04/30/24 13:17 Physical Exam Vitals: Vital Signs Temp Pulse Resp BP Pulse Ox 04/30/24 17:12 62 04/30/24 17:03 58 L 04/30/24 16:45 55 L 24 123/74 95 04/30/24 16:00 75 L 04/30/24 13:24 62 18 123/51 94 L 04/30/24 12:07 97.6 F 74 16 113/77 74 L Intake and Output 04/30/24 04/30/24 04/30/24 06:59 14:59 22:59 Other: Weight 71.214 kg General appearance the patient is calm and comfortable currently on 3 L of oxygen by nasal cannula. No signs of any significant respiratory distress. Head exam was generally normal. There was no scleral icterus or corneal arcus. Mucous membranes were moist. Previous craniotomy with right parietal region. Neck was supple and without jugular venous distension, thyromegaly, or carotid bruits. Carotids were easily palpable bilaterally. There was no adenopathy. Lungs were clear to auscultation and percussion, and with normal diaphragmatic excursion. No wheezes or rales were noted. Cardiac exam revealed the PMI to be normally situated and sized. The rhythm was regular and no extrasystoles were noted during several minutes of auscultation. The first and second heart sounds were normal and physiologic splitting of the second heart sound was noted. There were no murmurs, rubs, clicks, or gallops. Abdominal exam revealed normal bowel sounds. The abdomen was soft, non-tender, and without masses, organomegaly, or appreciable enlargement of the abdominal aorta. Examination of the extremities revealed easily palpable radial, femoral and pedal pulses. There was no cyanosis, clubbing or edema. Examination of the skin revealed no evidence of significant rashes, suspicious appearing nevi or other concerning lesions. Neurologically, the patient is awake and alert and the patient does have some left sided weakness.. Cranial nerves are essentially intact. Results - Laboratory Findings CBC and BMP: 04/30/24 12:38 04/30/24 12:40 PT/INR, D-dimer PT 10.6 sec (10.0-12.5) 04/30/24 12:38 INR 1.0 (<1.2) 04/30/24 12:38 Abnormal lab findings: Abnormal Labs 04/30/24 04/30/24 04/30/24 12:38 12:38 12:38 WBC 11.9 H MCHC 30.8 L RDW 20.7 H Neutrophils # 10.6 H Lymphocytes # 0.8 L APTT 20.2 L Chloride BUN Glucose Plasma Lactic Acid Florentino 4.1 H* Alkaline Phosphatase Total Protein Albumin 04/30/24 04/30/24 12:40 16:36 WBC MCHC RDW Neutrophils # Lymphocytes # APTT Chloride 108 H BUN 29 H Glucose 136 H Plasma Lactic Acid Florentino 3.4 H* Alkaline Phosphatase 133 H Total Protein 5.6 L Albumin 3.2 L - Diagnostic Findings Chest x-ray: image reviewed CT scan - chest: image reviewed Assessment and Plan Plan: Metastatic squamous cell carcinoma. The patient has a large cavitating mass in the left upper lobe in addition to brain metastases Left-sided weakness, CAT scan of the chest brain showing no acute abnormalities and the findings are consistent with encephalomalacia related to previous craniotomy and resection of brain tumor. The patient is post radiation therapy to the brain. No altered mentation weakness improving Craniotomy and resection of the parietal metastatic brain lesion followed by radiation therapy Acute hypoxic respiratory failure currently on 3 L of oxygen by nasal cannula. The patient has also developed bilateral diffuse groundglass pulmonary infiltrates. Rule out acute lung injury which could be associated to underlying malignancy. There was aspiration. Rule out acute viral infection. Rule out atypical pneumonias. Rule out diffuse pulmonary malignancy. Rule out interstitial edema related to CHF Mild lactic acidosis, improving Hypertension Hyperlipidemia Plan Titrate oxygen flow to maintain saturation above 90%, currently on 3 L Start the patient with a combination of Rocephin and Zithromax Check procalcitonin level Continue Decadron and increase the dose to 6 mg IV every 6 hours Continue Keppra for seizure prophylaxis Obtain echocardiogram Consult medical oncology Consult neurology Will follow
[2024-05-01 06:15] LABS: Anisocytosis Moderate; Basophils % (A) 0 %; Eosinophils % (A) 0 %; HCT 36.4 % (34.0-46.0); HGB 10.9 gm/dL (11.4-16.0); Hypochromasia Slight; Lymphocytes # (A) 0.7 k/uL (1.0-4.8); Lymphocytes % (A) 7 %; MCH 26.3 pg (25.0-35.0); MCHC 30.1 g/dL (31.0-37.0); MCV 87.5 fL (80.0-100.0); Mean Platelet Volume 8.1; Monocytes # (A) 0.3 k/uL (0-1.0); Monocytes % (A) 3 %; Neutrophils # (A) 9.8 k/uL (1.3-7.7); Neutrophils % (A) 89 %; Platelet Count 156 k/uL (150-450); RBC 4.16 m/uL (3.80-5.40); RDW 20.6 % (11.5-15.5); WBC 10.9 k/uL (3.8-10.6)
[2024-05-01 06:35] LABS: African American GFR (CKD) >90 (>60 ml/min/1.73 sqM); Anion Gap 4 mmol/L; Blood Urea Nitrogen 26 mg/dL (7-17); Calcium 8.4 mg/dL (8.4-10.2); Carbon Dioxide 26 mmol/L (22-30); Chloride 110 mmol/L (98-107); Glucose 138 mg/dL (74-99); Non-African American GFR(CKD) >90 (>60 ml/min/1.73 sqM); Potassium 4.5 mmol/L (3.5-5.1); Sodium 140 mmol/L (137-145)
[2024-05-01] MEDS: lisinopriL 20 MG TAB PO SCH (08:22)
[2024-05-01] MEDS: amLODIPine 5 MG TAB PO SCH (08:23)
--- NOTE | 2024-05-01 11:27 | P.CNNES ---
History of Present Illness Consult date: 05/01/24 Reason for Consult: Weakness History of Present Illness: The patient is a 74-year-old female who was seen in neurologic consultation on 01/30/2024, in collaboration with Jennifer Conroy, via teleneurology. The patient was reportedly brought into the emergency department because of an shortness of breath. History is obtained from the patient, her who is present at the bedside at the time of the evaluation and review of the chart. According to the patient and her , the patient has been having left-sided weakness since her seizure and brain surgery. The patient reportedly had a craniotomy on April 14, 2024. Since that time, she has been having left-sided weakness which reportedly is improving. The patient reports that her left arm is stronger than her left leg. She tends to drag her leg when she is walking. The patient denies numbness in her left arm and leg. She denies headache, changes in vision, difficulty with speech and swallowing. She has been working with physical therapy, at home. According to her , the patient is supposed to start chemotherapy on Friday. "CT scan of the brain was done in the emergency department that showed age- appropriate senescent changes. There was focal area of decreased density in the right parietal cortex and subcortical white matter consistent with encephalomalacia related to previous brain surgery. There is also evidence of craniotomy. There is also mild decreased density in the periventricular white matter change. No altered mentation. No seizure activity. CT angiogram of the chest was also done in the emergency department and the patient was found to have mild mediastinal and left hilar lymphadenopathy, a large cavitating mass measuring 9 x 8 cm in size in the left upper lobe with cystic air/fluid within the tumor and diffuse groundglass density involving both lungs more so on the right upper lobe. Note that the patient's PET/CT that was done on 04/18/2024 showed evidence consistent with metastatic disease including a left upper lobe cavitating mass with central cavitation and SUV of 24.3. Left breast parenchymal uptake with an SUV of 4.9, soft tissue nodule in the left chest sidewall at the level of the diaphragm with an SUV of 19.4, FDG uptake in the left axillary lymph node with an SUV of 2.7, left pulmonary hilar lymph node measuring SUV of 11.4 and left supraclavicular lymph node with an SUV of 8.6 and uptake in the left lower lobe along with some atelectasis. No skeletal uptake. No intra-abdominal uptake. At this point in time, the patient is on 3 L oxygen by nasal cannula with a pulse ox of 95%. The viral screen came back negative. proBNP level is 568. Lactic acid level was at 4.1 dropped down to 3.2. Electrolytes are within normal limits with a BUN of 29 and a creatinine of 0.5. Normal coagulation profile. WBC count 11.9 with a hemoglobin 11.9 and a platelet count of 179. The patient was restarted on Decadron 6 mg IV every 6 hours. Patient was also started on a combination of Rocephin and Zithromax. Th stefany are essentially empiric antibiotic coverage. proBNP level is at 568". I have personally viewed brain imaging and agree with the report. Past Medical History Past Medical History: Cancer, Hyperlipidemia Additional Past Medical History / Comment(s): Metastatic squamous cell carcinoma of the lung History of Any Multi-Drug Resistant Organisms: None Reported Past Surgical History: Joint Replacement Additional Past Surgical History / Comment(s): right hip Past Psychological History: No Psychological Hx Reported Smoking Status: Former smoker Past Alcohol Use History: Occasional Past Drug Use History: None Reported Medications and Allergies Home Medications Medication Instructions Recorded Confirmed Type Atorvastatin [Lipitor] 10 mg PO HS 04/30/24 04/30/24 History amLODIPine [Norvasc] 5 mg PO DAILY 04/30/24 04/30/24 History dexAMETHasone [Decadron] See Taper PO DIRECTED 04/30/24 04/30/24 History levETIRAcetam [Keppra] 500 mg PO BID 04/30/24 04/30/24 History lisinopriL 40 mg PO DAILY 04/30/24 04/30/24 History Allergies Allergy/AdvReac Type Severity Reaction Status Date / Time No Known Allergies Allergy Verified 04/30/24 13:17 Physical Examination - Vital Signs Vital Signs: Vital Signs Temp Pulse Resp BP Pulse Ox 05/01/24 01:32 58 L 18 109/75 95 04/30/24 21:00 64 18 108/50 95 04/30/24 20:20 63 04/30/24 20:11 58 L 04/30/24 20:00 60 18 128/58 95 04/30/24 17:12 62 04/30/24 17:03 58 L 04/30/24 16:45 55 L 24 123/74 95 04/30/24 16:00 75 L 04/30/24 13:24 62 18 123/51 94 L 04/30/24 12:07 97.6 F 74 16 113/77 74 L General: The patient is well-nourished, well-developed and in no acute distress. She is examined, in the emergency department. She reports being very cold. HEENT: Head is atraumatic, normocephalic. Fundus not visualized. There is no scleral icterus. Mucous members are moist. There is a head tremor Neck: Supple without carotid bruits Heart: Regular rate and rhythm Lungs: Clear to auscultation Extremities: Without edema. Arms and legs are cool to the touch. Neurological examination Mental status: The patient is awake, alert and oriented x 3. Her speech is c lear. There is no dysarthria or aphasia. Cranial nerves: Pupils are equal at 3 mm and reactive. Visual genao are full to confrontation. Extraocular movements are intact. There is no nystagmus. F acial sensation is intact. There is slight flattening of the left nasolabial fold. Hearing is grossly intact. Uvula and palate are midline. Shoulder shrug is symmetric. Tongue protrudes midline. Motor: Strength (right/left)-back stayer 5/5, triceps 5/5, biceps 5/5, hip flexors 3/3, ankle plantar flexors 5/5. Sensation: Grossly intact to light touch throughout. There is no extinction with double simultaneous stimulation. Coordination: The patient has a bilateral intention tremor, noted on finger-to- nose testing. There is no dysmetria. There is slight slowing of left-sided rapid alternating movements. Deep tendon reflexes: 3+/4+ in the left upper and lower extremities. Right- sided reflexes 2+/4+. Gait: Not assessed Results 1. The patient is a 74-year-old female with metastatic squamous cell cancer of the lung. She recently underwent craniotomy for removal/debulking of the right parietal metastasis. Since that time, the patient has been experiencing left-s ided weakness. The patient is working with home physical therapy. 2. Shortness of breath, likely secondary to lung cancer 3. 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 - Laboratory Findings CBC and BMP: 05/01/24 05:45 05/01/24 05:45 Abnormal Lab Findings: Abnormal Labs 04/30/24 04/30/24 04/30/24 12:38 12:38 12:38 WBC 11.9 H Hgb MCHC 30.8 L RDW 20.7 H Neutrophils # 10.6 H Lymphocytes # 0.8 L APTT 20.2 L Chloride BUN Creatinine Glucose Plasma Lactic Acid Florentino 4.1 H* Alkaline Phosphatase Total Protein Albumin 04/30/24 04/30/24 04/30/24 12:40 16:36 20:16 WBC Hgb MCHC RDW Neutrophils # Lymphocytes # APTT Chloride 108 H BUN 29 H Creatinine Glucose 136 H Plasma Lactic Acid Florentino 3.4 H* 3.2 H* Alkaline Phosphatase 133 H Total Protein 5.6 L Albumin 3.2 L 05/01/24 05/01/24 05/01/24 00:15 05:45 05:45 WBC 10.9 H Hgb 10.9 L MCHC 30.1 L RDW 20.6 H Neutrophils # 9.8 H Lymphocytes # 0.7 L APTT Chloride 110 H BUN 26 H Creatinine 0.47 L Glucose 138 H Plasma Lactic Acid Florentino 4.9 H* Alkaline Phosphatase Total Protein Albumin 05/01/24 05:45 WBC Hgb MCHC RDW Neutrophils # Lymphocytes # APTT Chloride BUN Creatinine Glucose Plasma Lactic Acid Florentino 3.1 H* Alkaline Phosphatase Total Protein Albumin - Diagnostic Findings Comments: 1. Continue home physical therapy for left-sided hemiparesis 2. Continue workup and treatment for metastatic lung cancer 3. Agree with oncology consultation 4. Consider physical therapy evaluation while here in the hospital 5. No further neurologic intervention is needed at this time. Neurology will sign off. Please call with questions or concerns.
--- NOTE | 2024-05-01 13:01 | XR ---
EXAMINATION TYPE: XR chest 1V portable DATE OF EXAM: 05/01/2024 COMPARISON: 04/30/2024 HISTORY: Shortness of breath TECHNIQUE: Single frontal view of the chest is obtained. FINDINGS: Large 10 cm left upper lobe lung mass. Diffuse interstitial pattern with some additional v ague consolidation in the lateral margin of the right midlung. Tiny pleural effusion on the right wit h no pneumothorax. Arthropathy of the shoulders. Atherosclerotic change aorta. IMPRESSION: 1. Large 10 cm left upper lobe lung mass or abscess. 2. Diffuse pulmonary findings may represent venous congestion or interstitial pneumonitis with a loca lized area of consolidation in the mid lateral right lung.
--- NOTE | 2024-05-01 15:26 | P.CONS ---
History of Present Illness - Reason for Consult Consult date: 05/01/24 lung mass with brain met's Requesting physician: Charley Espinoza - Chief Complaint SOB, O2 Sat 40% by [facility] RN - History of Present Illness Ms. Aguilera is a very pleasant 74-year-old female with recently found large left upper lobe lung mass with brain lesions status post surgery and radiation to her brain lesion who is here for shortness of breath and hypoxia. Home visiting nurse found O2 sats of 40s and sent patient to the ER. Workup in the ER including a CT of the lungs was negative for PE however did reveal a 9 cm left upper lobe necrotic mass versus abscess. She presented to the ER on 03/06/2024, MRI revealed ring-enhancing mass with vasogenic edema. She was transferred to [facility] where she had resection on 03/15/2024. Follow-up MRI here from 03/31/2024 revealed postsurgery changes. PET scan from 04/18/2024 revealed a 9 cm left upper lobe cavitary mass that was concerning for malignancy as well as uptake in the left hilar lymph nodes, left supraclavicular lymph nodes, and a left chest wall soft tissue nodule measuring 15 mm. There was also some slight uptake in the left axilla and breast and mammography was recommended. She was scheduled to be seen by Dr. Lantigua on 05/03/2024 however comes in with hypoxia prior to her first oncology appointment with us. Past Medical History Past Medical History: Cancer, Hyperlipidemia Additional Past Medical History / Comment(s): Metastatic squamous cell carcinoma of the lung History of Any Multi-Drug Resistant Organisms: None Reported Past Surgical History: Joint Replacement Additional Past Surgical History / Comment(s): right hip Past Psychological History: No Psychological Hx Reported Smoking Status: Former smoker Past Alcohol Use History: Occasional Past Drug Use History: None Reported Medications and Allergies Home Medications Medication Instructions Recorded Confirmed Type Atorvastatin [Lipitor] 10 mg PO HS 04/30/24 04/30/24 History amLODIPine [Norvasc] 5 mg PO DAILY 04/30/24 04/30/24 History dexAMETHasone [Decadron] See Taper PO DIRECTED 04/30/24 04/30/24 History levETIRAcetam [Keppra] 500 mg PO BID 04/30/24 04/30/24 History lisinopriL 40 mg PO DAILY 04/30/24 04/30/24 History Allergies Allergy/AdvReac Type Severity Reaction Status Date / Time No Known Allergies Allergy Verified 04/30/24 13:17 Physical Exam Vitals: Vital Signs Temp Pulse Resp BP Pulse Ox 05/01/24 12:15 72 16 05/01/24 12:08 60 18 05/01/24 09:02 71 05/01/24 08:51 67 18 95 05/01/24 08:39 97.6 F 63 20 113/68 96 05/01/24 01:32 58 L 18 109/75 95 04/30/24 21:00 64 18 108/50 95 04/30/24 20:20 63 04/30/24 20:11 58 L 04/30/24 20:00 60 18 128/58 95 04/30/24 17:12 62 04/30/24 17:03 58 L 04/30/24 16:45 55 L 24 123/74 95 04/30/24 16:00 75 L 04/30/24 13:24 62 18 123/51 94 L Patient appears to be in no acute distress. No respiratory distress, on 4 L nasal cannula. No jaundice. Normal heart rate. Results CBC & Chem 7: 05/01/24 05:45 05/01/24 05:45 Labs: Abnormal Lab Results - Last 24 Hours (Table) 04/30/24 04/30/24 04/30/24 Range/Units 12:38 12:38 12:38 WBC 11.9 H (3.8-10.6) k/uL Hgb (11.4-16.0) gm/dL MCHC 30.8 L (31.0-37.0) g/dL RDW 20.7 H (11.5-15.5) % Neutrophils # 10.6 H (1.3-7.7) k/uL Lymphocytes # 0.8 L (1.0-4.8) k/uL APTT 20.2 L (22.0-30.0) sec Chloride (98-107) mmol/L BUN (7-17) mg/dL Creatinine (0.52-1.04) mg/dL Glucose (74-99) mg/dL Plasma Lactic Acid Florentino 4.1 H* (0.7-2.0) mmol/L Alkaline Phosphatase (38-126) U/L Total Protein (6.3-8.2) g/dL Albumin (3.5-5.0) g/dL 04/30/24 04/30/24 04/30/24 Range/Units 12:40 16:36 20:16 WBC (3.8-10.6) k/uL Hgb (11.4-16.0) gm/dL MCHC (31.0-37.0) g/dL RDW (11.5-15.5) % Neutrophils # (1.3-7.7) k/uL Lymphocytes # (1.0-4.8) k/uL APTT (22.0-30.0) sec Chloride 108 H (98-107) mmol/L BUN 29 H (7-17) mg/dL Creatinine (0.52-1.04) mg/dL Glucose 136 H (74-99) mg/dL Plasma Lactic Acid Florentino 3.4 H* 3.2 H* (0.7-2.0) mmol/L Alkaline Phosphatase 133 H (38-126) U/L Total Protein 5.6 L (6.3-8.2) g/dL Albumin 3.2 L (3.5-5.0) g/dL 05/01/24 05/01/24 05/01/24 Range/Units 00:15 05:45 05:45 WBC 10.9 H (3.8-10.6) k/uL Hgb 10.9 L (11.4-16.0) gm/dL MCHC 30.1 L (31.0-37.0) g/dL RDW 20.6 H (11.5-15.5) % Neutrophils # 9.8 H (1.3-7.7) k/uL Lymphocytes # 0.7 L (1.0-4.8) k/uL APTT (22.0-30.0) sec Chloride 110 H (98-107) mmol/L BUN 26 H (7-17) mg/dL Creatinine 0.47 L (0.52-1.04) mg/dL Glucose 138 H (74-99) mg/dL Plasma Lactic Acid Florentino 4.9 H* (0.7-2.0) mmol/L Alkaline Phosphatase (38-126) U/L Total Protein (6.3-8.2) g/dL Albumin (3.5-5.0) g/dL 05/01/24 05/01/24 Range/Units 05:45 11:49 WBC (3.8-10.6) k/uL Hgb (11.4-16.0) gm/dL MCHC (31.0-37.0) g/dL RDW (11.5-15.5) % Neutrophils # (1.3-7.7) k/uL Lymphocytes # (1.0-4.8) k/uL APTT (22.0-30.0) sec Chloride (98-107) mmol/L BUN (7-17) mg/dL Creatinine (0.52-1.04) mg/dL Glucose (74-99) mg/dL Plasma Lactic Acid Florentino 3.1 H* 4.5 H* (0.7-2.0) mmol/L Alkaline Phosphatase (38-126) U/L Total Protein (6.3-8.2) g/dL Albumin (3.5-5.0) g/dL Chest x-ray: report reviewed CT scan - chest: report reviewed Assessment and Plan Assessment: 1. Hypoxia due to large lung mass 2. Metastatic lung cancer 3. Brain mets status post resection and radiation therapy 4. Lactic acidosis 5. Left-sided weakness Plan: Ms. Aguilera is a very pleasant 74-year-old female with recently found left lung mass as well as brain mass status post resection of her brain tumor followed by radiation by Dr. Mars, scheduled to see Dr. Barcenas on 05/03/2024 to discuss systemic therapy, who is here for hypoxia and difficulty in breathing. -I do not see records of her pathology, will need to obtain this from [facility] where she had her brain lesion resection; Per pulmonary note it appears that pathology of her mass is a squamous cell carcinoma -Currently saturating well on 4 L nasal cannula -PET scan reviewed with the patient -Will need NGS if not already sent -Monitor for SVC syndrome, consult radiation oncology to determine if she would benefit from radiation to her primary lung mass due to the size -Neurology on board for left-sided weakness since her craniotomy Discussed with patient and her and they are agreeable to plan. All of their questions were answered.
[2024-05-01] MEDS: AZITHROMYCIN 500 MG TAB PO SCH (16:56)
[2024-05-01 19:38] LABS: Appearance,Urine Cloudy (Clear); Mucus,Urine Rare /hpf; RBC,Urine 2 /hpf (0-5); WBC,Urine 4 /hpf (0-5)
[2024-05-01 19:39] LABS: Color,Urine Yellow
--- NOTE | 2024-05-01 19:40 | P.PN ---
Subjective Progress Note Date: 05/01/24 This is a 74-year-old female patient with metastatic squamous cell carcinoma of the lung. 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 Radiation therapy was done locally at [facility] on [facility] by Dr. Johnathan Mars. Following that, the patient was placed on Decadron. As Decadron was being weaned off, the patient developed some generalized weakness and altered mentation. Based on that, the dose was upped again by radiation oncology. This morning, the patient came into the emergency for new onset left-sided weakness. CAT scan of the brain was done in the [facility] department that showed age-appropriate senescent changes. There was focal area of decreased density in the right parietal cortex and subcortical white matter consistent with encephalomalacia related to previous brain surgery. There is also evidence of craniotomy. There is also mild decreased density in the periventricular white matter change. No altered mentation. No seizure activity. CT angiogram of the chest was also done in the emergency department and the patient was found to have mild mediastinal and left hilar lymphadenopathy, a large cavitating mass measuring 9 x 8 cm in size in the left upper lobe with cystic air/fluid within the tumor and diffuse groundglass density involving both lungs more so on the right upper lobe. Note that the patient's PET/CT that was done on 04/18/2024 showed evidence consistent with metastatic disease including a left upper lobe cavitating mass with central cavitation and SUV of 24.3. Left breast parenchymal uptake with an SUV of 4.9, soft tissue nodule in the left chest sidewall at the level of the diaphragm with an SUV of 19.4, FDG uptake in the left axillary lymph node with an SUV of 2.7, left pulmonary hilar lymph node measuring SUV of 11.4 and left supraclavicular lymph node with an SUV of 8.6 and uptake in the left lower lobe along with some atelectasis. No skeletal uptake. No intra-abdominal uptake. At this point in time, the patient is on 3 L oxygen by nasal cannula with a pulse ox of 95%. The viral screen came back negative. proBNP level is 568. Lactic acid level was at 4.1 dropped down to 3.2. Electrolytes are within normal limits with a BUN of 29 and a creatinine of 0.5. Normal coagulation profile. WBC count 11.9 with a hemoglobin 11.9 and a platelet count of 179. The patient was restarted on Decadron 6 mg IV every 6 hours. Patient was also started on a combination of Rocephin and Zithromax. These are essentially empiric antibiotic coverage. proBNP level is at 568. On today's evaluation of 05/01/2024, seen the patient for a follow-up. The patient is on oxygen at 2 L/min nasal cannula with a pulse ox of 92%. She denies having any significant respiratory distress. As mentioned, the CAT scan of the chest that was done yesterday showed bilateral groundglass pulmonary infiltrates in addition to a cavitating left upper lobe mass with possible abscess formation. Patient also has some mild mediastinal and left hilar lymphadenopathy. A repeat chest x-ray was done today and it again showed a large 10 cm left upper lobe mass with secondary cavitation and questionable abscess formation. There is also diffuse pulmonary findings with pulm vascular congestion/interstitial infiltrates bilaterally. The viral screen was negative. The proBNP level was 568. Procalcitonin level is at 0.06. Echocardiogram was ordered. The patient remains on Rocephin and Zithromax. The patient remains on normal saline at rate of 10 cc an hour. The patient remains also on Decadron and Keppra. Afebrile for now. Seen by medical oncology. Objective - Vital Signs Vital signs: Vital Signs Temp 97.6 F 05/01/24 08:39 Pulse 71 05/01/24 09:02 Resp 18 05/01/24 08:51 BP 113/68 05/01/24 08:39 Pulse Ox 95 05/01/24 08:51 FiO2 Intake & Output 04/30/24 05/01/24 05/01/24 18:59 06:59 18:59 Weight 71.214 kg - Exam General appearance the patient is calm and comfortable currently on 2 L of oxygen by nasal cannula. No signs of any significant respiratory distress. Head exam was generally normal. There was no scleral icterus or corneal arcus. Mucous membranes were moist. Previous craniotomy with right parietal region. Neck was supple and without jugular venous distension, thyromegaly, or carotid bruits. Carotids were easily palpable bilaterally. There was no adenopathy. Lungs were clear to auscultation and percussion, and with normal diaphragmatic excursion. No wheezes or rales were noted. Cardiac exam revealed the PMI to be normally situated and sized. The rhythm was regular and no extrasystoles were noted during several minutes of auscultation. The first and second heart sounds were normal and physiologic splitting of the second heart sound was noted. There were no murmurs, rubs, clicks, or gallops. Abdominal exam revealed normal bowel sounds. The abdomen was soft, non-tender, and without masses, organomegaly, or appreciable enlargement of the abdominal aorta. Examination of the extremities revealed easily palpable radial, femoral and pedal pulses. There was no cyanosis, clubbing or edema. Examination of the skin revealed no evidence of significant rashes, suspicious appearing nevi or other concerning lesions. Neurologically, the patient is awake and alert and the patient does have some left sided weakness.. Cranial nerves are essentially intact. - Labs CBC & Chem 7: 05/01/24 05:45 05/01/24 05:45 Labs: Abnormal Lab Results - Last 24 Hours (Table) 04/30/24 04/30/24 04/30/24 Range/Units 12:38 12:38 12:38 WBC 11.9 H (3.8-10.6) k/uL Hgb (11.4-16.0) gm/dL MCHC 30.8 L (31.0-37.0) g/dL RDW 20.7 H (11.5-15.5) % Neutrophils # 10.6 H (1.3-7.7) k/uL Lymphocytes # 0.8 L (1.0-4.8) k/uL APTT 20.2 L (22.0-30.0) sec Chloride (98-107) mmol/L BUN (7-17) mg/dL Creatinine (0.52-1.04) mg/dL Glucose (74-99) mg/dL Plasma Lactic Acid Florentino 4.1 H* (0.7-2.0) mmol/L Alkaline Phosphatase (38-126) U/L Total Protein (6.3-8.2) g/dL Albumin (3.5-5.0) g/dL 04/30/24 04/30/24 04/30/24 Range/Units 12:40 16:36 20:16 WBC (3.8-10.6) k/uL Hgb (11.4-16.0) gm/dL MCHC (31.0-37.0) g/dL RDW (11.5-15.5) % Neutrophils # (1.3-7.7) k/uL Lymphocytes # (1.0-4.8) k/uL APTT (22.0-30.0) sec Chloride 108 H (98-107) mmol/L BUN 29 H (7-17) mg/dL Creatinine (0.52-1.04) mg/dL Glucose 136 H (74-99) mg/dL Plasma Lactic Acid Florentino 3.4 H* 3.2 H* (0.7-2.0) mmol/L Alkaline Phosphatase 133 H (38-126) U/L Total Protein 5.6 L (6.3-8.2) g/dL Albumin 3.2 L (3.5-5.0) g/dL 05/01/24 05/01/24 05/01/24 Range/Units 00:15 05:45 05:45 WBC 10.9 H (3.8-10.6) k/uL Hgb 10.9 L (11.4-16.0) gm/dL MCHC 30.1 L (31.0-37.0) g/dL RDW 20.6 H (11.5-15.5) % Neutrophils # 9.8 H (1.3-7.7) k/uL Lymphocytes # 0.7 L (1.0-4.8) k/uL APTT (22.0-30.0) sec Chloride 110 H (98-107) mmol/L BUN 26 H (7-17) mg/dL Creatinine 0.47 L (0.52-1.04) mg/dL Glucose 138 H (74-99) mg/dL Plasma Lactic Acid Florentino 4.9 H* (0.7-2.0) mmol/L Alkaline Phosphatase (38-126) U/L Total Protein (6.3-8.2) g/dL Albumin (3.5-5.0) g/dL 05/01/24 Range/Units 05:45 WBC (3.8-10.6) k/uL Hgb (11.4-16.0) gm/dL MCHC (31.0-37.0) g/dL RDW (11.5-15.5) % Neutrophils # (1.3-7.7) k/uL Lymphocytes # (1.0-4.8) k/uL APTT (22.0-30.0) sec Chloride (98-107) mmol/L BUN (7-17) mg/dL Creatinine (0.52-1.04) mg/dL Glucose (74-99) mg/dL Plasma Lactic Acid Florentino 3.1 H* (0.7-2.0) mmol/L Alkaline Phosphatase (38-126) U/L Total Protein (6.3-8.2) g/dL Albumin (3.5-5.0) g/dL Assessment and Plan Plan: Metastatic squamous cell carcinoma. The patient has a large cavitating mass in the left upper lobe in addition to brain metastases. Rule out secondary superimposed infection with abscess formation. Procalcitonin level has been low. The patient also developed diffuse bilateral pulmonary filtrates with secondary hypoxic respiratory failure. Left-sided weakness, CAT scan of the chest brain showing no acute abnormalities and the findings are consistent with encephalomalacia related to previous craniotomy and resection of brain tumor. The patient is post radiation therapy to the brain. No altered mentation weakness improving Craniotomy and resection of the parietal metastatic brain lesion followed by radiation therapy Acute hypoxic respiratory failure currently on 3 L of oxygen by nasal cannula. The patient has also developed bilateral diffuse groundglass pulmonary infiltrates. Rule out acute lung injury which could be associated to underlying malignancy. There was aspiration. Rule out acute viral infection. Rule out atypical pneumonias. Rule out diffuse pulmonary malignancy. Rule out interstitial edema related to CHF. proBNP level is mildly elevated. Procalcitonin level has been within normal limits. Mild lactic acidosis, improving Hypertension Hyperlipidemia Plan Titrate oxygen flow to maintain saturation above 90%, currently on 2 L Start the patient with a combination of Rocephin and Zithromax Check procalcitonin level was low at 0.06 Continue Decadron and increase the dose to 6 mg IV every 6 hours Continue Keppra for seizure prophylaxis Obtain echocardiogram Consult medical oncology input is appreciated Consult neurology input is appreciated Will follow
[2024-05-01] MEDS: SODIUM CHLORIDE 0.9% 1,000 ML IV SCH (23:31)
[2024-05-02] MEDS: IPRATROPIUM-ALBUTEROL 3 ML NEB INHALATION PRN (00:15)
[2024-05-02 06:55] LABS: Anisocytosis Moderate; Basophils % (A) 0 %; Eosinophils % (A) 0 %; HCT 32.2 % (34.0-46.0); Hypochromasia Slight; Lymphocytes % (A) 8 %; MCHC 30.9 g/dL (31.0-37.0); MCV 87.4 fL (80.0-100.0); Mean Platelet Volume 8.4; Monocytes # (A) 0.5 k/uL (0-1.0); Monocytes % (A) 4 %; Neutrophils # (A) 10.6 k/uL (1.3-7.7); Neutrophils % (A) 88 %; Platelet Count 125 k/uL (150-450); RBC 3.69 m/uL (3.80-5.40); RDW 20.7 % (11.5-15.5); WBC 12.1 k/uL (3.8-10.6)
[2024-05-02 07:17] LABS: African American GFR (CKD) >90 (>60 ml/min/1.73 sqM); Anion Gap 3 mmol/L; Blood Urea Nitrogen 18 mg/dL (7-17); Carbon Dioxide 27 mmol/L (22-30); Chloride 107 mmol/L (98-107); Glucose 118 mg/dL (74-99); Non-African American GFR(CKD) >90 (>60 ml/min/1.73 sqM); Potassium 4.2 mmol/L (3.5-5.1); Sodium 137 mmol/L (137-145)
--- NOTE | 2024-05-02 07:44 | XR ---
EXAMINATION TYPE: XR chest 1V DATE OF EXAM: 05/02/2024 6:32 AM CLINICAL INDICATION:Female, 74 years old with history of Shortness of breath; PH[facility] COMPARISON: Chest radiograph from one day prior. TECHNIQUE: XR chest 1V Frontal view of the chest. FINDINGS: Similar left 10 cm upper lobe lung mass. Diffuse interstitial pattern with some additional vague cons olidation in the lateral margin of the right midlung. Tiny pleural effusion on the right with no pneu mothorax. Arthropathy of the shoulders. Atherosclerotic change aorta. IMPRESSION: 1. Similar masslike area measuring up to 10 cm left upper lobe. 2. Diffuse pulmonary findings may represent venous congestion or interstitial pneumonitis with a loca lized area of consolidation in the mid lateral right lung.
[2024-05-02] MEDS: HEPARIN SODIUM,PORCINE 5,000 UNIT/ML 1 ML VIAL SQ SCH (10:26)
--- NOTE | 2024-05-02 12:27 | P.PN ---
Subjective Progress Note Date: 05/02/24 This is a 74-year-old female patient with metastatic squamous cell carcinoma of the lung. 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 Radiation therapy was done locally at [facility] on [facility] by Dr. Johnathan Mars. Following that, the patient was placed on Decadron. As Decadron was being weaned off, the patient developed some generalized weakness and altered mentation. Based on that, the dose was upped again by radiation oncology. This morning, the patient came into the emergency for new onset left-sided weakness. CAT scan of the brain was done in the [facility] department that showed age-appropriate senescent changes. There was focal area of decreased density in the right parietal cortex and subcortical white matter consistent with encephalomalacia related to previous brain surgery. There is also evidence of craniotomy. There is also mild decreased density in the periventricular white matter change. No altered mentation. No seizure activity. CT angiogram of the chest was also done in the emergency department and the patient was found to have mild mediastinal and left hilar lymphadenopathy, a large cavitating mass measuring 9 x 8 cm in size in the left upper lobe with cystic air/fluid within the tumor and diffuse groundglass density involving both lungs more so on the right upper lobe. Note that the patient's PET/CT that was done on 04/18/2024 showed evidence consistent with metastatic disease including a left upper lobe cavitating mass with central cavitation and SUV of 24.3. Left breast parenchymal uptake with an SUV of 4.9, soft tissue nodule in the left chest sidewall at the level of the diaphragm with an SUV of 19.4, FDG uptake in the left axillary lymph node with an SUV of 2.7, left pulmonary hilar lymph node measuring SUV of 11.4 and left supraclavicular lymph node with an SUV of 8.6 and uptake in the left lower lobe along with some atelectasis. No skeletal uptake. No intra-abdominal uptake. At this point in time, the patient is on 3 L oxygen by nasal cannula with a pulse ox of 95%. The viral screen came back negative. proBNP level is 568. Lactic acid level was at 4.1 dropped down to 3.2. Electrolytes are within normal limits with a BUN of 29 and a creatinine of 0.5. Normal coagulation profile. WBC count 11.9 with a hemoglobin 11.9 and a platelet count of 179. The patient was restarted on Decadron 6 mg IV every 6 hours. Patient was also started on a combination of Rocephin and Zithromax. These are essentially empiric antibiotic coverage. proBNP level is at 568. On today's evaluation of 05/01/2024, seen the patient for a follow-up. The patient is on oxygen at 2 L/min nasal cannula with a pulse ox of 92%. She denies having any significant respiratory distress. As mentioned, the CAT scan of the chest that was done yesterday showed bilateral groundglass pulmonary infiltrates in addition to a cavitating left upper lobe mass with possible abscess formation. Patient also has some mild mediastinal and left hilar lymphadenopathy. A repeat chest x-ray was done today and it again showed a large 10 cm left upper lobe mass with secondary cavitation and questionable abscess formation. There is also diffuse pulmonary findings with pulm vascular congestion/interstitial infiltrates bilaterally. The viral screen was negative. The proBNP level was 568. Procalcitonin level is at 0.06. Echocardiogram was ordered. The patient remains on Rocephin and Zithromax. The patient remains on normal saline at rate of 10 cc an hour. The patient remains also on Decadron and Keppra. Afebrile for now. Seen by medical oncology. 05/02/2024, the patient on 2 L of oxygen by nasal cannula. No significant respiratory distress. Some heaviness in between the left lower extremity. Remains on Decadron. Remains on Keppra. Remains on bronchodilators. Remains on a combination of Rocephin and Zithromax. White cell count is at 12 with a hemoglobin of 10 and a platelet count of 125, BUN is 18 with a creatinine of 0.4 and a sodium levels of 137. Seen by oncology. Repeat chest x-ray from today shows a cavitating mass in the left upper lobe which is similar measuring about 10 cm in size in addition to diffuse interstitial changes bilaterally. Objective - Vital Signs Vital signs: Vital Signs Temp 97.7 F 05/02/24 00:00 Pulse 80 05/02/24 09:41 Resp 18 05/02/24 09:41 BP 117/68 05/02/24 04:03 Pulse Ox 91 L 05/02/24 04:03 FiO2 Intake & Output 05/01/24 05/02/24 05/02/24 18:59 06:59 18:59 Output Total 700 450 Balance -700 -450 Weight 71.214 kg Output: Urine 700 450 Other: Voiding Method Indwelling Catheter - Exam General appearance the patient is calm and comfortable currently on 2 L of oxygen by nasal cannula. No signs of any significant respiratory distress. Head exam was generally normal. There was no scleral icterus or corneal arcus. Mucous membranes were moist. Previous craniotomy with right parietal region. Neck was supple and without jugular venous distension, thyromegaly, or carotid bruits. Carotids were easily palpable bilaterally. There was no adenopathy. Lungs were clear to auscultation and percussion, and with normal diaphragmatic excursion. No wheezes or rales were noted. Cardiac exam revealed the PMI to be normally situated and sized. The rhythm was regular and no extrasystoles were noted during several minutes of auscultation. The first and second heart sounds were normal and physiologic splitting of the second heart sound was noted. There were no murmurs, rubs, clicks, or gallops. Abdominal exam revealed normal bowel sounds. The abdomen was soft, non-tender, and without masses, organomegaly, or appreciable enlargement of the abdominal aorta. Examination of the extremities revealed easily palpable radial, femoral and pedal pulses. There was no cyanosis, clubbing or edema. Examination of the skin revealed no evidence of significant rashes, suspicious appearing nevi or other concerning lesions. Neurologically, the patient is awake and alert and the patient does have some le ft sided weakness.. Cranial nerves are essentially intact. - Labs CBC & Chem 7: 05/02/24 05:59 05/02/24 05:59 Labs: Abnormal Lab Results - Last 24 Hours (Table) 05/01/24 05/01/24 05/01/24 Range/Units 11:49 15:19 17:40 WBC (3.8-10.6) k/uL RBC (3.80-5.40) m/uL Hgb (11.4-16.0) gm/dL Hct (34.0-46.0) % MCHC (31.0-37.0) g/dL RDW (11.5-15.5) % Plt Count (150-450) k/uL Neutrophils # (1.3-7.7) k/uL BUN (7-17) mg/dL Creatinine (0.52-1.04) mg/dL Glucose (74-99) mg/dL Plasma Lactic Acid Florentino 4.5 H* 4.2 H* (0.7-2.0) mmol/L Calcium (8.4-10.2) mg/dL Urine Appearance Cloudy H (Clear) Urine Mucus Rare H (None) /hpf 05/01/24 05/01/24 05/02/24 Range/Units 18:28 21:56 01:10 WBC (3.8-10.6) k/uL RBC (3.80-5.40) m/uL Hgb (11.4-16.0) gm/dL Hct (34.0-46.0) % MCHC (31.0-37.0) g/dL RDW (11.5-15.5) % Plt Count (150-450) k/uL Neutrophils # (1.3-7.7) k/uL BUN (7-17) mg/dL Creatinine (0.52-1.04) mg/dL Glucose (74-99) mg/dL Plasma Lactic Acid Florentino 6.3 H* 4.9 H* 2.1 H* (0.7-2.0) mmol/L Calcium (8.4-10.2) mg/dL Urine Appearance (Clear) Urine Mucus (None) /hpf 05/02/24 05/02/24 05/02/24 Range/Units 05:59 05:59 05:59 WBC 12.1 H (3.8-10.6) k/uL RBC 3.69 L (3.80-5.40) m/uL Hgb 10.0 L (11.4-16.0) gm/dL Hct 32.2 L (34.0-46.0) % MCHC 30.9 L (31.0-37.0) g/dL RDW 20.7 H (11.5-15.5) % Plt Count 125 L (150-450) k/uL Neutrophils # 10.6 H (1.3-7.7) k/uL BUN 18 H (7-17) mg/dL Creatinine 0.42 L (0.52-1.04) mg/dL Glucose 118 H (74-99) mg/dL Plasma Lactic Acid Florentino 2.5 H* (0.7-2.0) mmol/L Calcium 8.0 L (8.4-10.2) mg/dL Urine Appearance (Clear) Urine Mucus (None) /hpf Microbiology - Last 24 Hours (Table) 04/30/24 16:46 Blood Culture - Preliminary Blood 04/30/24 16:41 Blood Culture - Preliminary Blood Assessment and Plan Plan: Metastatic squamous cell carcinoma. The patient has a large cavitating mass in the left upper lobe in addition to brain metastases. Rule out secondary superimposed infection with abscess formation. Procalcitonin level has been low. The patient also developed diffuse bilateral pulmonary filtrates with secondary hypoxic respiratory failure. Clinically unchanged Left-sided weakness, CAT scan of the chest brain showing no acute abnormalities and the findings are consistent with encephalomalacia related to previous craniotomy and resection of brain tumor. The patient is post radiation therapy to the brain. No altered mentation weakness improving, continues to have some left lower extremity heaviness and weakness. Currently on Decadron. Craniotomy and resection of the parietal metastatic brain lesion followed by radiation therapy Acute hypoxic respiratory failure currently on 3 L of oxygen by nasal cannula. The patient has also developed bilateral diffuse groundglass pulmonary infiltrates. Rule out acute lung injury which could be associated to underlying malignancy. There was aspiration. Rule out acute viral infection. Rule out atypical pneumonias. Rule out diffuse pulmonary malignancy. Rule out interstitial edema related to CHF. proBNP level is mildly elevated. Procalcitonin level has been within normal limits. Mild lactic acidosis, improving Hypertension Hyperlipidemia Plan Clinically stable continue same management. Titrate oxygen flow to maintain saturation above 90%, currently on 2 L Start the patient with a combination of Rocephin and Zithromax Check procalcitonin level was low at 0.06 Continue Decadron and increase the dose to 6 mg IV every 6 hours Continue Keppra for seizure prophylaxis Obtain echocardiogram Consult medical oncology input is appreciated Consult neurology input is appreciated Will follow
--- NOTE | 2024-05-03 00:10 | P.PN ---
Subjective Progress Note Date: 05/01/24 Patient is a 73-year-old female with a known history of hyperlipidemia, metastatic squamous cell carcinoma of the lung with mets to brain status post recent craniotomy followed by radiation therapy. Patient is on Decadron at home which is being tapered down.. Patient presents to ER with complaints of generalized weakness and altered mental status and new onset left-sided weakness. As per family patient was also noted to have hypoxia with pulse ox 40%. CT of the brain on admission showed age-related appropriate senescent changes. No edema. Right parietal craniotomy defect and a decent encephalomalacia within the right parietal cortex and subcortical white matter. CTA chest showed 9 x 1 cm left upper lobe mass with air-fluid level consistent with large abscess or necrotic neoplasm. Diffuse groundglass densities in both lungs greatest in the left upper lobe consistent with acute pneumonia or pulmonary edema. Mild mediastinal and left hilar adenopathy. No evidence of PE. EKG showed sinus rhythm with occasional supraventricular premature complexes. Laboratory showed WBC 11.9 hemoglobin 11.9, platelets 178 sodium 140 potassium 108 bicarb is 28 BUN 29 and creatinine 0.54 blood sugar 136 and lactic acid 4.1 alk phos 133 albumin 3.2 Patient is currently on oxygen via nasal cannula at 3 L 05/01/2024 Patient is in the ER. Awake alert and oriented but feels weak. On 2 L oxygen via nasal cannula. Repeat chest x-ray today showed large 10 cm left upper lobe mass with secondary cavitation and questionable abscess formation. There is also diffuse pulmonary findings with pulmonary vascular congestion/interstitial infiltrates bilaterally. Procalcitonin level is not elevated. To 0.06. proBNP 568. Otherwise patient remains on antibiotics ceftriaxone and azithromycin. Lactic acid level is also elevated. IV fluids increased to 75 cc/h. Patient is also on Decadron and Keppra for seizure prophylaxis. Oncology, pulmonary is on board. Patient was seen by neurology as well. Laboratory data showed WBC 10.9 hemoglobin 10.9 and platelets 156 sodium 140 potassium 4.5 chloride 110 bicarb is 26 BUN 26 and creatinine 0.47 and lactic acid 3.1 and increased 4.5 Objective - Vital Signs Vital signs: Vital Signs Temp 97.6 F 05/01/24 20:06 Pulse 75 05/01/24 20:38 Resp 20 05/01/24 20:06 BP 111/87 05/01/24 20:06 Pulse Ox 94 L 05/01/24 20:06 FiO2 Intake & Output 05/01/24 05/01/24 05/02/24 06:59 18:59 06:59 Output Total 700 Balance -700 Output: Urine 700 - Exam Patient is a 73-year-old female with a known history of hyperlipidemia, metastatic squamous cell carcinoma of the lung with mets to brain status post recent craniotomy followed by radiation therapy. Patient is on Decadron at home which is being tapered down.. Patient presents to ER with complaints of generalized weakness and altered mental status and new onset left-sided weakness. As per family patient was also noted to have hypoxia with pulse ox 40%. CT of the brain on admission showed age-related appropriate senescent changes. No edema. Right parietal craniotomy defect and a decent encephalomalacia within the right parietal cortex and subcortical white matter. CTA chest showed 9 x 1 cm left upper lobe mass with air-fluid level consistent with large abscess or necrotic neoplasm. Diffuse groundglass densities in both lungs greatest in the left upper lobe consistent with acute pneumonia or pulmonary edema. Mild mediastinal and left hilar adenopathy. No evidence of PE. EKG showed sinus rhythm with occasional supraventricular premature complexes. Laboratory showed WBC 11.9 hemoglobin 11.9, platelets 178 sodium 140 potassium 108 bicarb is 28 BUN 29 and creatinine 0.54 blood sugar 136 and lactic acid 4.1 alk phos 133 albumin 3.2 Patient is currently on oxygen via nasal cannula at 3 L - Labs CBC & Chem 7: 05/02/24 05:59 05/02/24 05:59 Labs: Abnormal Lab Results - Last 24 Hours (Table) 04/30/24 05/01/24 05/01/24 Range/Units 20:16 00:15 05:45 WBC 10.9 H (3.8-10.6) k/uL Hgb 10.9 L (11.4-16.0) gm/dL MCHC 30.1 L (31.0-37.0) g/dL RDW 20.6 H (11.5-15.5) % Neutrophils # 9.8 H (1.3-7.7) k/uL Lymphocytes # 0.7 L (1.0-4.8) k/uL Chloride (98-107) mmol/L BUN (7-17) mg/dL Creatinine (0.52-1.04) mg/dL Glucose (74-99) mg/dL Plasma Lactic Acid Florentino 3.2 H* 4.9 H* (0.7-2.0) mmol/L Urine Appearance (Clear) Urine Mucus (None) /hpf 05/01/24 05/01/24 05/01/24 Range/Units 05:45 05:45 11:49 WBC (3.8-10.6) k/uL Hgb (11.4-16.0) gm/dL MCHC (31.0-37.0) g/dL RDW (11.5-15.5) % Neutrophils # (1.3-7.7) k/uL Lymphocytes # (1.0-4.8) k/uL Chloride 110 H (98-107) mmol/L BUN 26 H (7-17) mg/dL Creatinine 0.47 L (0.52-1.04) mg/dL Glucose 138 H (74-99) mg/dL Plasma Lactic Acid Florentino 3.1 H* 4.5 H* (0.7-2.0) mmol/L Urine Appearance (Clear) Urine Mucus (None) /hpf 05/01/24 05/01/24 05/01/24 Range/Units 15:19 17:40 18:28 WBC (3.8-10.6) k/uL Hgb (11.4-16.0) gm/dL MCHC (31.0-37.0) g/dL RDW (11.5-15.5) % Neutrophils # (1.3-7.7) k/uL Lymphocytes # (1.0-4.8) k/uL Chloride (98-107) mmol/L BUN (7-17) mg/dL Creatinine (0.52-1.04) mg/dL Glucose (74-99) mg/dL Plasma Lactic Acid Florentino 4.2 H* 6.3 H* (0.7-2.0) mmol/L Urine Appearance Cloudy H (Clear) Urine Mucus Rare H (None) /hpf Assessment and Plan Assessment: Acute hypoxic respiratory failure requiring 3 L oxygen via cannula cannula. Patient was hypoxic with pulse ox 74% in the ER Acute diffuse bilateral groundglass pulmonary infiltrates mainly in the left upper lobe/mass consistent with acute pneumonia or pulmonary edema. 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 Patient is status post right followed by radiation therapy. Left-sided weakness. CT head showed no no acute abnormalities. Findings consistent with encephalomalacia related to previous craniotomy and resection of brain tumor. Lactic acidosis Hypertension Hyperlipidemia DVT prophylaxis with heparin subcu Plan: Patient will be continued on oxygen supplementation. Gentle IV hydration. Follow-up lactic acid level. Patient was started on antibiotics ceftriaxone azithromycin. Procalcitonin level is 0.06. Seizure prophylaxis with Keppra as per neurology recommendations. Patient will be continued on dexamethasone 6 mg IV every 6 hourly Current pain management and follow-up closely. Prognosis is guarded. Time with Patient: Greater than 30
--- NOTE | 2024-05-03 00:12 | P.PN ---
Subjective Progress Note Date: 05/02/24 Patient is a 73-year-old female with a known history of hyperlipidemia, metastatic squamous cell carcinoma of the lung with mets to brain status post recent craniotomy followed by radiation therapy. Patient is on Decadron at home which is being tapered down.. Patient presents to ER with complaints of generalized weakness and altered mental status and new onset left-sided weakness. As per family patient was also noted to have hypoxia with pulse ox 40%. CT of the brain on admission showed age-related appropriate senescent changes. No edema. Right parietal craniotomy defect and a decent encephalomalacia within the right parietal cortex and subcortical white matter. CTA chest showed 9 x 1 cm left upper lobe mass with air-fluid level consistent with large abscess or necrotic neoplasm. Diffuse groundglass densities in both lungs greatest in the left upper lobe consistent with acute pneumonia or pulmonary edema. Mild mediastinal and left hilar adenopathy. No evidence of PE. EKG showed sinus rhythm with occasional supraventricular premature complexes. Laboratory showed WBC 11.9 hemoglobin 11.9, platelets 178 sodium 140 potassium 108 bicarb is 28 BUN 29 and creatinine 0.54 blood sugar 136 and lactic acid 4.1 alk phos 133 albumin 3.2 Patient is currently on oxygen via nasal cannula at 3 L 05/01/2024 Patient is in the ER. Awake alert and oriented but feels weak. On 2 L oxygen via nasal cannula. Repeat chest x-ray today showed large 10 cm left upper lobe mass with secondary cavitation and questionable abscess formation. There is also diffuse pulmonary findings with pulmonary vascular congestion/interstitial infiltrates bilaterally. Procalcitonin level is not elevated. To 0.06. proBNP 568. Otherwise patient remains on antibiotics ceftriaxone and azithromycin. Lactic acid level is also elevated. IV fluids increased to 75 cc/h. Patient is also on Decadron and Keppra for seizure prophylaxis. Oncology, pulmonary is on board. Patient was seen by neurology as well. Laboratory data showed WBC 10.9 hemoglobin 10.9 and platelets 156 sodium 140 potassium 4.5 chloride 110 bicarb is 26 BUN 26 and creatinine 0.47 and lactic acid 3.1 and increased 4.5 05/02/2024 Patient is currently resting in the bed. Awake alert and oriented. Feels better today. Able to tolerate oral diet. Currently on 2 L oxygen via nasal cannula. Most recent lactic acid level 2.5. Patient is on IV hydration with normal saline at 75 cc/h. Also on antibiotics ceftriaxone azithromycin. Patient is being continued on Decadron. Laboratory data showed WBC 12.1 hemoglobin 10.0 and platelets 125, sodium 137 potassium 4.2 chloride 107 bicarb is 27 BUN 88 creatinine 0.420 blood sugar 118 and calcium 8.0. Pulmonary and oncology is on board. Objective - Vital Signs Vital signs: Vital Signs Temp 97.9 F 05/02/24 08:35 Pulse 82 05/02/24 09:50 Resp 18 05/02/24 09:50 BP 133/64 05/02/24 08:35 Pulse Ox 91 L 05/02/24 08:35 FiO2 Intake & Output 05/01/24 05/02/24 05/02/24 18:59 06:59 18:59 Output Total 700 450 Balance -700 -450 Weight 71.214 kg Output: Urine 700 450 Other: Voiding Method Indwelling Catheter Indwelling Catheter - Exam Patient is a 73-year-old female with a known history of hyperlipidemia, metastatic squamous cell carcinoma of the lung with mets to brain status post recent craniotomy followed by radiation therapy. Patient is on Decadron at home which is being tapered down.. Patient presents to ER with complaints of generalized weakness and altered mental status and new onset left-sided weakness. As per family patient was also noted to have hypoxia with pulse ox 40%. CT of the brain on admission showed age-related appropriate senescent changes. No edema. Right parietal craniotomy defect and a decent encephalomalacia within the right parietal cortex and subcortical white matter. CTA chest showed 9 x 1 cm left upper lobe mass with air-fluid level consistent with large abscess or necrotic neoplasm. Diffuse groundglass densities in both lungs greatest in the left upper lobe consistent with acute pneumonia or pulmonary edema. Mild mediastinal and left hilar adenopathy. No evidence of PE. EKG showed sinus rhythm with occasional supraventricular premature complexes. Laboratory showed WBC 11.9 hemoglobin 11.9, platelets 178 sodium 140 potassium 108 bicarb is 28 BUN 29 and creatinine 0.54 blood sugar 136 and lactic acid 4.1 alk phos 133 albumin 3.2 Patient is currently on oxygen via nasal cannula at 3 L - Labs CBC & Chem 7: 05/02/24 05:59 05/02/24 05:59 Labs: Abnormal Lab Results - Last 24 Hours (Table) 05/01/24 05/01/2405/01/24 Range/Units 11:49 15:19 17:40 WBC (3.8-10.6) k/uL RBC (3.80-5.40) m/uL Hgb (11.4-16.0) gm/dL Hct (34.0-46.0) % MCHC (31.0-37.0) g/dL RDW (11.5-15.5) % Plt Count (150-450) k/uL Neutrophils # (1.3-7.7) k/uL BUN (7-17) mg/dL Creatinine (0.52-1.04) mg/dL Glucose (74-99) mg/dL Plasma Lactic Acid Florentino 4.5 H* 4.2 H* (0.7-2.0) mmol/L Calcium (8.4-10.2) mg/dL Urine Appearance Cloudy H (Clear) Urine Mucus Rare H (None) /hpf 05/01/24 05/01/24 05/02/24 Range/Units 18:28 21:56 01:10 WBC (3.8-10.6) k/uL RBC (3.80-5.40) m/uL Hgb (11.4-16.0) gm/dL Hct (34.0-46.0) % MCHC (31.0-37.0) g/dL RDW (11.5-15.5) % Plt Count (150-450) k/uL Neutrophils # (1.3-7.7) k/uL BUN (7-17) mg/dL Creatinine (0.52-1.04) mg/dL Glucose (74-99) mg/dL Plasma Lactic Acid Florentino 6.3 H* 4.9 H* 2.1 H* (0.7-2.0) mmol/L Calcium (8.4-10.2) mg/dL Urine Appearance (Clear) Urine Mucus (None) /hpf 05/02/24 05/02/24 05/02/24 Range/Units 05:59 05:59 05:59 WBC 12.1 H (3.8-10.6) k/uL RBC 3.69 L (3.80-5.40) m/uL Hgb 10.0 L (11.4-16.0) gm/dL Hct 32.2 L (34.0-46.0) % MCHC 30.9 L (31.0-37.0) g/dL RDW 20.7 H (11.5-15.5) % Plt Count 125 L (150-450) k/uL Neutrophils # 10.6 H (1.3-7.7) k/uL BUN 18 H (7-17) mg/dL Creatinine 0.42 L (0.52-1.04) mg/dL Glucose 118 H (74-99) mg/dL Plasma Lactic Acid Florentino 2.5 H* (0.7-2.0) mmol/L Calcium 8.0 L (8.4-10.2) mg/dL Urine Appearance (Clear) Urine Mucus (None) /hpf Microbiology - Last 24 Hours (Table) 04/30/24 16:46 Blood Culture - Preliminary Blood 04/30/24 16:41 Blood Culture - Preliminary Blood Assessment and Plan Assessment: Acute hypoxic respiratory failure requiring 3 L oxygen via cannula cannula on admission. Patient was hypoxic with pulse ox 74% in the ER. On 2 L via nasal cannula today. Acute diffuse bilateral groundglass pulmonary infiltrates mainly in the left upper lobe/mass consistent with acute pneumonia or pulmonary edema. 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 Patient is status post right followed by radiation therapy. Left-sided weakness. Improved. CT head showed no no acute abnormalities. Findings consistent with encephalomalacia related to previous craniotomy and resection of brain tumor. Lactic acidosis improving. Hypertension Hyperlipidemia DVT prophylaxis with heparin subcu Plan: Patient will be continued on oxygen supplementation. Gentle IV hydration. Follow-up lactic acid level. Patient was started on antibiotics ceftriaxone azithromycin. Procalcitonin level is 0.06. Seizure prophylaxis with Keppra as per neurology recommendations. Patient will be continued on dexamethasone 6 mg IV every 6 hourly Current pain management and follow-up closely. Prognosis is guarded. Time with Patient: Greater than 30
[2024-05-03 07:13] LABS: Anisocytosis Moderate; Basophils % (A) 0 %; Eosinophils % (A) 0 %; HCT 29.6 % (34.0-46.0); HGB 9.4 gm/dL (11.4-16.0); Hypochromasia Slight; Lymphocytes # (A) 0.7 k/uL (1.0-4.8); Lymphocytes % (A) 7 %; MCH 27.8 pg (25.0-35.0); MCHC 31.6 g/dL (31.0-37.0); MCV 87.9 fL (80.0-100.0); Mean Platelet Volume 8.2; Monocytes # (A) 0.4 k/uL (0-1.0); Monocytes % (A) 4 %; Neutrophils % (A) 89 %; Platelet Count 119 k/uL (150-450); RBC 3.36 m/uL (3.80-5.40); RDW 20.8 % (11.5-15.5); WBC 11.3 k/uL (3.8-10.6)
[2024-05-03 07:23] LABS: African American GFR (CKD) >90 (>60 ml/min/1.73 sqM); Anion Gap 2 mmol/L; Blood Urea Nitrogen 16 mg/dL (7-17); Calcium 8.1 mg/dL (8.4-10.2); Carbon Dioxide 27 mmol/L (22-30); Chloride 106 mmol/L (98-107); Glucose 122 mg/dL (74-99); Non-African American GFR(CKD) >90 (>60 ml/min/1.73 sqM); Potassium 4.2 mmol/L (3.5-5.1); Sodium 135 mmol/L (137-145)
--- NOTE | 2024-05-03 13:40 | P.PN ---
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 Patient is on Decadron at home which is being tapered down.. Patient presents to ER with complaints of generalized weakness and altered mental status and new onset left-sided weakness. As per family patient was also noted to have hypoxia with pulse ox 40%. CT of the brain on admission showed age-related appropriate senescent changes. No edema. Right parietal craniotomy defect and a decent encephalomalacia within the right parietal cortex and subcortical white matter. CTA chest showed 9 x 1 cm left upper lobe mass with air-fluid level consistent with large abscess or necrotic neoplasm. Diffuse groundglass densities in both lungs greatest in the left upper lobe consistent with acute pneumonia or pulmonary edema. Mild mediastinal and left hilar adenopathy. No evidence of PE. EKG showed sinus rhythm with occasional supraventricular premature complexes. Laboratory showed WBC 11.9 hemoglobin 11.9, platelets 178 sodium 140 potassium 108 bicarb is 28 BUN 29 and creatinine 0.54 blood sugar 136 and lactic acid 4.1 alk phos 133 albumin 3.2 Patient is currently on oxygen via nasal cannula at 3 L. 05/03/2024 evaluated by pulmonary, neurology, oncology with recommendations noted. Radiation oncology consulted as per oncology regarding potential radiation to primary lung mass with their recommendations pending. Denies chest pain, palpitations or shortness of breath. Requiring 4 L nasal cannula O2 to maintain O2 sats in the low 90s. Continues on empiric antibiotics .afebrile, 11.3. Blood cultures remain negative, renal function stable. Blood sugars controlled Objective - Vital Signs Vital signs: Vital Signs Temp 98.2 F 05/03/24 11:40 Pulse 67 05/03/24 11:40 Resp 18 05/03/24 11:40 BP 116/57 05/03/24 11:40 Pulse Ox 92 L 05/03/24 11:40 FiO2 Intake & Output 05/02/24 05/03/24 05/03/24 18:59 06:59 18:59 Intake Total 240 30 281 Output Total 825 200 Balance -585 -170 281 Intake: IV 30 25 Invasive Line 2 20 20 Invasive Line 3 10 5 Oral 240 256 Output: Urine 825 200 Other: Voiding Method Indwelling Catheter Indwelling Catheter Indwelling Catheter - Exam PHYSICAL EXAM: VITAL SIGNS: [As above] GENERAL: Alert and oriented x 3, sitting up in bed, no acute distress HEENT: Normocephalic conjunctivae normal. eyes normal. MMM.Right parietal region prior craniotomy. NECK: Supple, no JVD. CARDIOVASCULAR: S1, S2 regular.. No murmur RESPIRATION: Unlabored, equal air entry, expiratory wheezing scattered throughout. ABDOMEN: Soft, nontender . No guarding. no masses palpable. Positive bowel sounds LEGS: No edema. no swelling. NERVOUS SYSTEM: Cranial N 2-12 grossly normal.Diffuse weakness -greatest on the left side ,no focal deficits. Strength and sensation grossly intact. Skin: Warm and dry, no rash - Labs CBC & Chem 7: 05/03/24 06:41 05/03/24 06:41 Labs: Abnormal Lab Results - Last 24 Hours (Table) 05/03/24 05/03/24 Range/Units 06:41 06:41 WBC 11.3 H (3.8-10.6) k/uL RBC 3.36 L (3.80-5.40) m/uL Hgb 9.4 L (11.4-16.0) gm/dL Hct 29.6 L (34.0-46.0) % RDW 20.8 H (11.5-15.5) % Plt Count 119 L (150-450) k/uL Neutrophils # 10.0 H (1.3-7.7) k/uL Lymphocytes # 0.7 L (1.0-4.8) k/uL Sodium 135 L (137-145) mmol/L Creatinine 0.48 L (0.52-1.04) mg/dL Glucose 122 H (74-99) mg/dL Calcium 8.1 L (8.4-10.2) mg/dL Microbiology - Last 24 Hours (Table) 04/30/24 16:46 Blood Culture - Preliminary Blood 04/30/24 16:41 Blood Culture - Preliminary Blood Assessment and Plan Assessment: Metastatic squamous cell Ca of the lung with mets to brain status post craniotomy, radiation therapy.Large cavitating mass, measuring up to 10 cm, left upper lobe. Rule out secondary superimposed infection with abscess formation. Diffuse bilateral groundglass pulmonary infiltrates, possible pulmonary edema ,procalcitonin low. Acute hypoxic respiratory failure secondary to the above Left-sided weakness, improving. CT head showed no no acute abnormalities. Findings consistent with encephalomalacia related to previous craniotomy and resection of brain tumor. Lactic acidosis improving. Hypertension Hyperlipidemia Former nicotine dependence Plan: Continue on current medication regimen ,monitoring and symptomatic treatment. Echo completed, results pending .continue on empiric antibiotics, Decadron and seizure prophylaxis with Keppra. Radiation oncology consult in place, recommendations pending. Aggressive pulmonary toileting with nebulized bronchodilators. Prognosis guarded given multiple complex medical issues. The impression and plan of care has been dictated as directed. : I performed a history and examination of this patient, discussed the same with the dictator. I agree with the dictator's note ,documented as a scribe. Any additional findings or plans will be noted.
--- NOTE | 2024-05-03 14:35 | P.PN ---
Subjective Progress Note Date: 05/03/24 Principal diagnosis: Metastatic pulmonary squamous cell carcinoma This is a 74-year-old female patient with metastatic squamous cell carcinoma of the lung. 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 Radiation therapy was done locally at [facility] by Dr. Johnathan Mars. Following that, the patient was placed on Decadron. As Decadron was being weaned off, the patient developed some generalized weakness and altered mentation. Based on that, the dose was upped again by radiation oncology. This morning, the patient came into the emergency for new onset left-sided weakness. CAT scan of the brain was done in the emergency department that showed age-appropriate senescent changes. There was focal area of decreased density in the right parietal cortex and subcortical white matter consistent with encephalomalacia related to previous brain surgery. There is also evidence of craniotomy. There is also mild decreased density in the periventricular white matter change. No altered mentation. No seizure activity. CT angiogram of the chest was also done in the emergency department and the patient was found to have mild mediastinal and left hilar lymphadenopathy, a large cavitating mass measuring 9 x 8 cm in size in the left upper lobe with cystic air/fluid within the tumor and diffuse groundglass density involving both lungs more so on the right upper lobe. Note that the patient's PET/CT that was done on 04/18/2024 showed evidence consistent with metastatic disease including a left upper lobe cavitating mass with central cavitation and SUV of 24.3. Left breast parenchymal uptake with an SUV of 4.9, soft tissue nodule in the left chest sidewall at the level of the diaphragm with an SUV of 19.4, FDG uptake in the left axillary lymph node with an SUV of 2.7, left pulmonary hilar lymph node measuring SUV of 11.4 and left supraclavicular lymph node with an SUV of 8.6 and uptake in the left lower lobe along with some atelectasis. No skeletal uptake. No intra-abdominal uptake. At this point in time, the patient is on 3 L oxygen by nasal cannula with a pulse ox of 95%. The viral screen came back negative. proBNP level is 568. Lactic acid level was at 4.1 dropped down to 3.2. Electrolytes are within normal limits with a BUN of 29 and a creatinine of 0.5. Normal coagulation profile. WBC count 11.9 with a hemoglobin 11.9 and a platelet count of 179. The patient was restarted on Decadron 6 mg IV every 6 hours. Patient was also started on a combination of Rocephin and Zithromax. These are essentially empiric antibiotic coverage. proBNP level is at 568. On today's evaluation of 05/01/2024, seen the patient for a follow-up. The patient is on oxygen at 2 L/min nasal cannula with a pulse ox of 92%. She denies having any significant respiratory distress. As mentioned, the CAT scan of the chest that was done yesterday showed bilateral groundglass pulmonary infiltrates in addition to a cavitating left upper lobe mass with possible abscess formation. Patient also has some mild mediastinal and left hilar lymphadenopathy. A repeat chest x-ray was done today and it again showed a larg e 10 cm left upper lobe mass with secondary cavitation and questionable abscess formation. There is also diffuse pulmonary findings with pulm vascular congestion/interstitial infiltrates bilaterally. The viral screen was negative. The proBNP level was 568. Procalcitonin level is at 0.06. Echocardiogram was ordered. The patient remains on Rocephin and Zithromax. The patient remains on normal saline at rate of 10 cc an hour. The patient remains also on Decadron and Keppra. Afebrile for now. Seen by medical oncology. 05/02/2024, the patient on 2 L of oxygen by nasal cannula. No significant respiratory distress. Some heaviness in between the left lower extremity. Remains on Decadron. Remains on Keppra. Remains on bronchodilators. Remains on a combination of Rocephin and Zithromax. White cell count is at 12 with a hemoglobin of 10 and a platelet count of 125, BUN is 18 with a creatinine of 0.4 and a sodium levels of 137. Seen by oncology. Repeat chest x-ray from today shows a cavitating mass in the left upper lobe which is similar measuring about 10 cm in size in addition to diffuse interstitial changes bilaterally. Reevaluated today on 05/03/2024, patient is on 4 L nasal cannula, doing surprisingly well, better than expected, seems to be very comfortable. Remains on antibiotics, being followed by many consultants. WBC count today is 11.3 hemoglobin 9.4 basic metabolic profile is normal and renal profile is normal, blood cultures remain negative so far. Objective - Vital Signs Vital signs: Vital Signs Temp 98.2 F 05/03/24 11:40 Pulse 67 05/03/24 11:40 Resp 18 05/03/24 11:40 BP 116/57 05/03/24 11:40 Pulse Ox 92 L 05/03/24 11:40 FiO2 Intake & Output 05/02/24 05/03/24 05/03/24 18:59 06:59 18:59 Intake Total 240 30 637 Output Total 694 525 4316 Balance -585 -170 -363 Intake: IV 30 25 Invasive Line 2 20 20 Invasive Line 3 10 5 Oral 240 612 Output: Urine 172 812 8253 Other: Voiding Method Indwelling Catheter Indwelling Catheter Indwelling Catheter - Exam General: Reveals 74-year-old female in no distress Skin: Skin is warm and dry and no rashes or lesions are noted. Eye: Pupils are equal, round and reactive to light, extra-ocular movements are intact; there is normal conjunctiva bilaterally. Ears, nose, mouth and throat: There are moist mucous membranes and no oral lesions. Neck: The neck is supple, there is no tenderness or JVD. Cardiovascular: There is a regular rate and rhythm. No murmur, rub or gallop is appreciated. Respiratory: Clear bilaterally no rhonchi no wheezes Gastrointestinal: Soft, non-distended, non-tender abdomen without masses or organomegaly noted. There is no rebound or guarding present. Bowel sounds are unremarkable. Back: There is no tenderness to palpation in the midline. There is no obvious deformity. Musculoskeletal: Normal ROM, no tenderness, There is no pedal edema. There is no calf tenderness or swelling. No cords were appreciated. Neurological: CN II-XII intact, Cranial nerves III through XII are intact. There are no obvious motor or sensory deficits. Coordination appears grossly intact. Speech is normal. Psychiatric: Cooperative, appropriate mood & affect, normal judgment. - Labs CBC & Chem 7: 05/03/24 06:41 05/03/24 06:41 Labs: Abnormal Lab Results - Last 24 Hours (Table) 05/03/24 05/03/24 Range/Units 06:41 06:41 WBC 11.3 H (3.8-10.6) k/uL RBC 3.36 L (3.80-5.40) m/uL Hgb 9.4 L (11.4-16.0) gm/dL Hct 29.6 L (34.0-46.0) % RDW 20.8 H (11.5-15.5) % Plt Count 119 L (150-450) k/uL Neutrophils # 10.0 H (1.3-7.7) k/uL Lymphocytes # 0.7 L (1.0-4.8) k/uL Sodium 135 L (137-145) mmol/L Creatinine 0.48 L (0.52-1.04) mg/dL Glucose 122 H (74-99) mg/dL Calcium 8.1 L (8.4-10.2) mg/dL Microbiology - Last 24 Hours (Table) 04/30/24 16:46 Blood Culture - Preliminary Blood 04/30/24 16:41 Blood Culture - Preliminary Blood Assessment and Plan Assessment: Impression Metastatic squamous cell carcinoma. The patient has a large cavitating mass in the left upper lobe in addition to brain metastases. Rule out secondary superimposed infection with abscess formation. Procalcitonin level has been low. The patient also developed diffuse bilateral pulmonary filtrates with secondary hypoxic respiratory failure. Left-sided weakness, CAT scan of the chest brain showing no acute abnormalities and the findings are consistent with encephalomalacia related to previous craniotomy and resection of brain tumor. The patient is post radiation therapy to the brain. No altered mentation weakness improving, continues to have some left lower extremity heaviness and weakness. Currently on Decadron. Craniotomy and resection of the parietal metastatic brain lesion followed by radiation therapy Acute hypoxic respiratory failure currently on 3 L of oxygen by nasal cannula. The patient has also developed bilateral diffuse groundglass pulmonary infiltrates. Hypertension Hyperlipidemia Plan: Continue Decadron Continue Keppra for seizure prophylaxis Continue antibiotics/Rocephin and Zithromax Check echocardiogram Patient is being followed by oncology and by neurology Discussed and updated the patient and her about her condition Continue oxygen and titrate accordingly Will continue to follow Overall prognosis is extremely poor and guarded Time with Patient: Less than 30
[2024-05-03 16:56] LABS: Glucose,Whole Blood 175 mg/dL (70-110)
--- NOTE | 2024-05-03 18:47 | P.PN ---
Subjective Progress Note Date: 05/03/24 No acute events. Patient is resting comfortably in bed. She is reporting persisting shortness of breath with mild improvement in breathing since admission. SpO2 92% on 4 L. Continues on IV antibiotics. WBC 11.3, hemoglobin 9.4, platelets 119,000. Afebrile Objective - Vital Signs Vital signs: Vital Signs Temp 98.2 F 05/03/24 11:40 Pulse 67 05/03/24 11:40 Resp 18 05/03/24 11:40 BP 116/57 05/03/24 11:40 Pulse Ox 92 L 05/03/24 11:40 FiO2 Intake & Output 05/02/24 05/03/24 05/03/24 18:59 06:59 18:59 Intake Total 240 30 281 Output Total 825 200 Balance -585 -170 281 Intake: IV 30 25 Invasive Line 2 20 20 Invasive Line 3 10 5 Oral 240 256 Output: Urine 825 200 Other: Voiding Method Indwelling Catheter Indwelling Catheter Indwelling Catheter - Constitutional General appearance: Present: average body habitus, no acute distress - EENT Eyes: Present: anicteric sclerae, EOMI ENT: Present: hearing grossly normal - Respiratory Details: breathing mildly labored - Cardiovascular Details: skin warm and dry - Integumentary Integumentary: Absent: cyanotic - Musculoskeletal Musculoskeletal: Present: strength equal bilaterally - Psychiatric Psychiatric: Present: A&O x's 3 - Labs CBC & Chem 7: 05/03/24 06:41 05/03/24 06:41 Labs: Abnormal Lab Results - Last 24 Hours (Table) 05/03/24 05/03/24 Range/Units 06:41 06:41 WBC 11.3 H (3.8-10.6) k/uL RBC 3.36 L (3.80-5.40) m/uL Hgb 9.4 L (11.4-16.0) gm/dL Hct 29.6 L (34.0-46.0) % RDW 20.8 H (11.5-15.5) % Plt Count 119 L (150-450) k/uL Neutrophils # 10.0 H (1.3-7.7) k/uL Lymphocytes # 0.7 L (1.0-4.8) k/uL Sodium 135 L (137-145) mmol/L Creatinine 0.48 L (0.52-1.04) mg/dL Glucose 122 H (74-99) mg/dL Calcium 8.1 L (8.4-10.2) mg/dL Microbiology - Last 24 Hours (Table) 04/30/24 16:46 Blood Culture - Preliminary Blood 04/30/24 16:41 Blood Culture - Preliminary Blood Assessment and Plan (1) Dyspnea Current Visit: Yes Status: Acute Priority: High Code(s): R06.00 - DYSPNEA, UNSPECIFIED SNOMED Code(s): 802838388 (2) Lung mass Current Visit: Yes Status: Acute Priority: High Code(s): R91.8 - OTHER NONSPECIFIC ABNORMAL FINDING OF LUNG FIELD SNOMED Code(s): 273264815 Plan: Ms. Aguilera is a very pleasant 74-year-old female with recently found left lung mass as well as brain mass status post resection of her brain tumor followed by radiation by Dr. Mars, scheduled to see Dr. Lantigua on 05/03/2024 to discuss systemic therapy, who is here for hypoxia and difficulty in breathing. -I do not see records of her pathology, will need to obtain this from [facility] where she had her brain lesion resection; Per pulmonary note it appears that pathology of her mass is a squamous cell carcinoma -PET scan reviewed with the patient -Will need NGS if not already sent -Monitor for SVC syndrome, consult radiation oncology to determine if she would benefit from radiation to her primary lung mass due to the size. Spoke with Dr. Mars today, will evaluate for palliative RT -Neurology on board for left-sided weakness since her craniotomy -Patient has missed last two appts to establish care in clinic. Will reschedule upon discharge Discussed with patient and her and they are agreeable to plan. All of their questions were answered.
--- NOTE | 2024-05-04 07:36 | CA ---
Transthoracic Echo Report Name: Kitty Aguilera Age: 74 Gender: F : 1950 Exam Date: 05/03/2024 11:42 Exam Location: [facility] Ht (in): 63 Wt (lb): 157 Ordering Physician: Kt Hercules MD Attending/Referring Phys: Preschool Principal Doretha Wells RDCS Procedure CPT: Indications: r/o chf Cardiac Hx: Technical Quality: Fair Contrast 1: Total Dose (mL): Contrast 2: Total Dose (mL): MEASUREMENTS (Male / Female) Normal Values 2D ECHO LV Diastolic Diameter PLAX 3.9 cm 4.2 - 5.9 / 3.9 - 5.3 cm LV Systolic Diameter PLAX 3.1 cm IVS Diastolic Thickness 1.1 cm 0.6 - 1.0 / 0.6 - 0.9 cm LVPW Diastolic Thickness 1.1 cm 0.6 - 1.0 / 0.6 - 0.9 cm LV Relative Wall Thickness 0.6 RV Internal Dim ED PLAX 2.7 cm LA Volume 49.0 cm??? 18 - 58 / 22 - 52 cm??? LA Volume Index 27.2 cm???/m??? 16 - 28 cm???/m??? M-MODE Aortic Root Diameter MM 3.6 cm LA Systolic Diameter MM 6.5 cm LA Ao Ratio MM 1.8 AV Cusp Separation MM 1.8 cm DOPPLER AV Peak Velocity 188.6 cm/s AV Peak Gradient 14.2 mmHg AV Mean Velocity 131.4 cm/s AV Mean Gradient 7.6 mmHg AV Velocity Time Integral 46.0 cm AI Peak Velocity 425.6 cm/s AI Peak Gradient 72.4 mmHg AI Pressure Half Time 435.3 ms LVOT Peak Velocity 126.6 cm/s LVOT Peak Gradient 6.4 mmHg LVOT Velocity Time Integral 31.3 cm MV Area PHT 3.9 cm??? Mitral E Point Velocity 71.9 cm/s Mitral A Point Velocity 121.2 cm/s Mitral E to A Ratio 0.6 MV Deceleration Time 195.7 ms MV E' Velocity 5.2 cm/s Mitral E to MV E' Ratio 13.7 TR Peak Velocity 282.1 cm/s TR Peak Gradient 31.8 mmHg Right Ventricular Systolic Press 36.8 mmHg FINDINGS Left Ventricle Mildly increased left ventricular wall thickness. Left ventricular cavity size normal. Normal left ventricular systolic function with no obvious regional wall motion abnormalities. Left ventricular ejection fraction is estimated at 55-60 %. Grade 1 diastolic dysfunction. Right Ventricle Normal right ventricular size and function. Mild pulmonary hypertension. Right Atrium Normal right atrial size. Left Atrium Normal left atrial size. Mitral Valve Structurally normal mitral valve. Mitral annular calcification. Mitral valve thickened. Trace to mild mitral regurgitation. Aortic Valve Trileaflet aortic valve. No aortic valve stenosis. Mild aortic regurgitation. Tricuspid Valve Structurally normal tricuspid valve. [id number] tricuspid regurgitation. Pulmonic Valve Structurally normal pulmonic valve. Pericardium No pericardial effusion. Aorta Normal size aortic root and proximal ascending aorta. CONCLUSIONS Technically difficult study was poorly visualized endocardium Normal LV systolic function Mild mitral regurgitation with calcified mitral valve leaflets and annulus Mild aortic regurgitation Previewed by: Dr. Geoff Hull MD (Electronically Signed) Final Date: 04 May 2024 07:35
--- NOTE | 2024-05-04 13:10 | P.PN ---
Subjective Progress Note Date: 05/04/24 Principal diagnosis: Metastatic pulmonary squamous cell carcinoma This is a 74-year-old female patient with metastatic squamous cell carcinoma of the lung. 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 Radiation therapy was done locally at [facility] by Dr. Johnathan Mars. Following that, the patient was placed on Decadron. As Decadron was being weaned off, the patient developed some generalized weakness and altered mentation. Based on that, the dose was upped again by radiation oncology. This morning, the patient came into the emergency for new onset left-sided weakness. CAT scan of the brain was done in the emergency department that showed age-appropriate senescent changes. There was focal area of decreased density in the right parietal cortex and subcortical white matter consistent with encephalomalacia related to previous brain surgery. There is also evidence of craniotomy. There is also mild decreased density in the periventricular white matter change. No altered mentation. No seizure activity. CT angiogram of the chest was also done in the emergency department and the patient was found to have mild mediastinal and left hilar lymphadenopathy, a large cavitating mass measuring 9 x 8 cm in size in the left upper lobe with cystic air/fluid within the tumor and diffuse groundglass density involving both lungs more so on the right upper lobe. Note that the patient's PET/CT that was done on 04/18/2024 showed evidence consistent with metastatic disease including a left upper lobe cavitating mass with central cavitation and SUV of 24.3. Left breast parenchymal uptake with an SUV of 4.9, soft tissue nodule in the left chest sidewall at the level of the diaphragm with an SUV of 19.4, FDG uptake in the left axillary lymph node with an SUV of 2.7, left pulmonary hilar lymph node measuring SUV of 11.4 and left supraclavicular lymph node with an SUV of 8.6 and uptake in the left lower lobe along with some atelectasis. No skeletal uptake. No intra-abdominal uptake. At this point in time, the patient is on 3 L oxygen by nasal cannula with a pulse ox of 95%. The viral screen came back negative. proBNP level is 568. Lactic acid level was at 4.1 dropped down to 3.2. Electrolytes are within normal limits with a BUN of 29 and a creatinine of 0.5. Normal coagulation profile. WBC count 11.9 with a hemoglobin 11.9 and a platelet count of 179. The patient was restarted on Decadron 6 mg IV every 6 hours. Patient was also started on a combination of Rocephin and Zithromax. These are essentially empiric antibiotic coverage. proBNP level is at 568. On today's evaluation of 05/01/2024, seen the patient for a follow-up. The patient is on oxygen at 2 L/min nasal cannula with a pulse ox of 92%. She denies having any significant respiratory distress. As mentioned, the CAT scan of the chest that was done yesterday showed bilateral groundglass pulmonary infiltrates in addition to a cavitating left upper lobe mass with possible abscess formation. Patient also has some mild mediastinal and left hilar lymphadenopathy. A repeat chest x-ray was done today and it again showed a larg e 10 cm left upper lobe mass with secondary cavitation and questionable abscess formation. There is also diffuse pulmonary findings with pulm vascular congestion/interstitial infiltrates bilaterally. The viral screen was negative. The proBNP level was 568. Procalcitonin level is at 0.06. Echocardiogram was ordered. The patient remains on Rocephin and Zithromax. The patient remains on normal saline at rate of 10 cc an hour. The patient remains also on Decadron and Keppra. Afebrile for now. Seen by medical oncology. 05/02/2024, the patient on 2 L of oxygen by nasal cannula. No significant respiratory distress. Some heaviness in between the left lower extremity. Remains on Decadron. Remains on Keppra. Remains on bronchodilators. Remains on a combination of Rocephin and Zithromax. White cell count is at 12 with a hemoglobin of 10 and a platelet count of 125, BUN is 18 with a creatinine of 0.4 and a sodium levels of 137. Seen by oncology. Repeat chest x-ray from today shows a cavitating mass in the left upper lobe which is similar measuring about 10 cm in size in addition to diffuse interstitial changes bilaterally. Reevaluated today on 05/03/2024, patient is on 4 L nasal cannula, doing surprisingly well, better than expected, seems to be very comfortable. Remains on antibiotics, being followed by many consultants. WBC count today is 11.3 hemoglobin 9.4 basic metabolic profile is normal and renal profile is normal, blood cultures remain negative so far. Patient was reevaluated today on 05/04/2024, remains on 4 L nasal cannula, patient seems to be in no distress, seems to be quite comfortable still on bronchodilators, antibiotics, patient has not received any treatment for her squamous cell carcinoma/metastatic squamous cell carcinoma except radiation nery atment to the brain, patient had MEDICAID ANALYST metastasis this was done after brain mass resection which was done at [facility]. At any rate the patient is supposed to have follow-up with Dr. Barcenas for chemotherapy/immunotherapy. She definitely needs to have follow-up with the medical oncologist upon discharge and should start treatment as soon as possibleLabs today show WBC count of 11.3 hemoglobin 9.4 basic metabolic profile is normal renal profile is normal Objective - Vital Signs Vital signs: Vital Signs Temp 98.0 F 05/04/24 08:00 Pulse 74 05/04/24 11:31 Resp 18 05/04/24 08:00 BP 125/71 05/04/24 08:00 Pulse Ox 94 L 05/04/24 08:01 FiO2 Intake & Output 05/03/24 05/04/24 05/04/24 18:59 06:59 18:59 Intake Total 1760 40 618 Output Total 1000 1500 500 Balance 760 -1460 118 Intake: IV 50 40 Invasive Line 2 40 20 Invasive Line 3 10 20 Intake, IV Titration 260 Amount Sodium Chloride 0.9% 1, 160 000 ml @ 20 mls/hr IV . Q24H [facility] Rx#:[id number] cefTRIAXone 2 gm In 100 Sodium Chloride 0.9% 50 ml @ 100 mls/hr IVPB Q24HR [facility] Rx#:[id number] Oral 1450 618 Output: Urine 1000 1500 500 Other: Voiding Method Indwelling Catheter Indwelling Catheter Indwelling Catheter - Exam General: Reveals 74-year-old female in no distress, on 4 L nasal cannula Skin: Skin is warm and dry and no rashes or lesions are noted. Eye: Pupils are equal, round and reactive to light, extra-ocular movements are intact; there is normal conjunctiva bilaterally. Ears, nose, mouth and throat: There are moist mucous membranes and no oral lesions. Neck: The neck is supple, there is no tenderness or JVD. Cardiovascular: There is a regular rate and rhythm. No murmur, rub or gallop is appreciated. Respiratory: Clear bilaterally no rhonchi no wheezes Gastrointestinal: Soft, non-distended, non-tender abdomen without masses or organomegaly noted. There is no rebound or guarding present. Bowel sounds are unremarkable. Back: There is no tenderness to palpation in the midline. There is no obvious deformity. Musculoskeletal: Normal ROM, no tenderness, There is no pedal edema. There is no calf tenderness or swelling. No cords were appreciated. Neurological: CN II-XII intact, Cranial nerves III through XII are intact. There are no obvious motor or sensory deficits. Coordination appears grossly intact. Speech is normal. Psychiatric: Cooperative, appropriate mood & affect, normal judgment. - Labs CBC & Chem 7: 05/03/24 06:41 05/03/24 06:41 Labs: Abnormal Lab Results - Last 24 Hours (Table) 05/03/24 Range/Units 16:53 POC Glucose (mg/dL) 175 H (70-110) mg/dL Microbiology - Last 24 Hours (Table) 04/30/24 16:46 Blood Culture - Preliminary Blood 04/30/24 16:41 Blood Culture - Preliminary Blood Assessment and Plan Assessment: Impression Metastatic squamous cell carcinoma. The patient has a large cavitating mass in the left upper lobe in addition to brain metastases. Rule out secondary superimposed infection with abscess formation. Procalcitonin level has been low. The patient also developed diffuse bilateral pulmonary filtrates with secondary hypoxic respiratory failure. Left-sided weakness, CAT scan of the chest brain showing no acute abnormalities and the findings are consistent with encephalomalacia related to previous craniotomy and resection of brain tumor. The patient is post radiation therapy to the brain. No altered mentation weakness improving, continues to have some left lower extremity heaviness and weakness. Currently on Decadron. Craniotomy and resection of the parietal metastatic brain lesion followed by radiation therapy Acute hypoxic respiratory failure currently on 3 L of oxygen by nasal cannula. The patient has also developed bilateral diffuse groundglass pulmonary infiltrates. Hypertension Hyperlipidemia Plan: Continue Decadron Continue Keppra for seizure prophylaxis Continue antibiotics/Rocephin and Zithromax Echocardiogram showed good LV function, mild mitral regurgitation and mild aortic regurgitation noted Patient is being followed by oncology and by neurology Discussed and updated the patient and her about her condition Continue oxygen and titrate accordingly Will continue to follow Time with Patient: Less than 30
--- NOTE | 2024-05-04 15:01 | P.PN ---
Subjective Progress Note Date: 05/04/24 04/30/24 Patient is a 73-year-old female with a known history of hyperlipidemia, metastatic squamous cell carcinoma of the lung with mets to brain status post recent craniotomy followed by radiation therapy. Patient is on Decadron at home which is being tapered down.. Patient presents to ER with complaints of generalized weakness and altered mental status and new onset left-sided weakness. As per family patient was also noted to have hypoxia with pulse ox 40%. CT of the brain on admission showed age-related appropriate senescent changes. No edema. Right parietal craniotomy defect and a decent encephalomalacia within the right parietal cortex and subcortical white matter. CTA chest showed 9 x 1 cm left upper lobe mass with air-fluid level consistent with large abscess or necrotic neoplasm. Diffuse groundglass densities in both lungs greatest in the left upper lobe consistent with acute pneumonia or pulmonary edema. Mild mediastinal and left hilar adenopathy. No evidence of PE. EKG showed sinus rhythm with occasional supraventricular premature complexes. Laboratory showed WBC 11.9 hemoglobin 11.9, platelets 178 sodium 140 potassium 108 bicarb is 28 BUN 29 and creatinine 0.54 blood sugar 136 and lactic acid 4.1 alk phos 133 albumin 3.2 Patient is currently on oxygen via nasal cannula at 3 L. 05/03/2024 evaluated by pulmonary, neurology, oncology with recommendations noted. Radiation oncology consulted as per oncology regarding potential radiation to primary lung mass with their recommendations pending. Denies chest pain, palpitations or shortness of breath. Requiring 4 L nasal cannula O2 to maintain O2 sats in the low 90s. Continues on empiric antibiotics .afebrile, 11.3. Blood cultures remain negative, renal function stable. Blood sugars controlled. 05/04/2024 Echo completed yesterday, reporting technically difficult study, poorly visualized endocardium, normal LV systolic function, mild mitral regurgitation with calcified mitral valve leaflets and annulus, mild aortic regurgitation. maintained on nebulized bronchodilators, antibiotics,continues to require 4 L nasal cannula to maintain O2 sats in the 90s. Radiation oncology consult in place, recommendations pending. Afebrile, WBC 11.3, hemoglobin 9.4, platelets 119. Sodium 135, potassium 4.2. Renal function stable. Objective - Vital Signs Vital signs: Vital Signs Temp 98.0 F 05/04/24 08:00 Pulse 91 05/04/24 12:00 Resp 18 05/04/24 08:00 BP 107/57 05/04/24 12:00 Pulse Ox 93 L 05/04/24 12:00 FiO2 Intake & Output 05/03/24 05/04/24 05/04/24 18:59 06:59 18:59 Intake Total 1760 40 736 Output Total 1000 1500 500 Balance 760 -1460 236 Intake: IV 50 40 Invasive Line 2 40 20 Invasive Line 3 10 20 Intake, IV Titration 260 Amount Sodium Chloride 0.9% 1, 160 000 ml @ 20 mls/hr IV . Q24H [facility] Rx#:[id number] cefTRIAXone 2 gm In 100 Sodium Chloride 0.9% 50 ml @ 100 mls/hr IVPB Q24HR [facility] Rx#:[id number] Oral 1450 736 Output: Urine 1000 1500 500 Other: Voiding Method Indwelling Catheter Indwelling Catheter Indwelling Catheter - Exam PHYSICAL EXAM: VITAL SIGNS: [As above] GENERAL: Alert and oriented x 3, sitting up in bed, no acute distress HEENT: Normocephalic ,Right parietal region prior craniotomy.Conjunctivae verenice l. eyes normal. MMM. NECK: Supple, no JVD. CARDIOVASCULAR: S1, S2 regular. No murmur RESPIRATION: Unlabored, equal air entry, essentially clear. ABDOMEN: Soft, nontender, nondistended.. No guarding. positive bowel sounds LEGS: No edema. no swelling. NERVOUS SYSTEM: Cranial N 2-12 grossly normal.Diffuse weakness -greatest on the left side ,no focal deficits. Strength and sensation grossly intact. Skin: Warm and dry, no rash - Labs CBC & Chem 7: 05/03/24 06:41 05/03/24 06:41 Labs: Abnormal Lab Results - Last 24 Hours (Table) 05/03/24 Range/Units 16:53 POC Glucose (mg/dL) 175 H (70-110) mg/dL Microbiology - Last 24 Hours (Table) 04/30/24 16:46 Blood Culture - Preliminary Blood 04/30/24 16:41 Blood Culture - Preliminary Blood Assessment and Plan Assessment: Metastatic squamous cell Ca of the lung with mets to brain status post craniotomy, radiation therapy.Large cavitating mass, measuring up to 10 cm, left upper lobe. Rule out secondary superimposed infection with abscess formation. Diffuse bilateral groundglass pulmonary infiltrates, possible pulmonary edema ,procalcitonin low. Acute hypoxic respiratory failure secondary to the above Left-sided weakness, improving. CT head showed no no acute abnormalities. Findings consistent with encephalomalacia related to previous craniotomy and resection of brain tumor. Lactic acidosis improving. Hypertension Hyperlipidemia Former nicotine dependence Plan: Continue on current medication regimen ,monitoring and symptomatic treatment.Radiation oncology consult in place, recommendations pending. Maintain empiric antibiotics, Decadron and seizure prophylaxis with Keppra. Aggressive pulmonary toileting with nebulized bronchodilators. Prognosis guarded given multiple complex medical issues. The impression and plan of care has been dictated as directed. : I performed a history and examination of this patient, discussed the same with the dictator. I agree with the dictator's note ,documented as a scribe. Any additional findings or plans will be noted.
[2024-05-04 21:13] VITALS: RESP 19
[2024-05-05 00:04] VITALS: TEMP 97.6
[2024-05-05 11:17] VITALS: BP 116/58
--- NOTE | 2024-05-05 11:35 | P.DS ---
Providers Date of admission: 04/30/24 14:26 Expected date of discharge: 05/05/24 Attending physician: Mario Jimenez Consults: 04/30/24 14:24 Consult Physician Routine Consulting Provider: Kt Hercules Consult Reason/Comments: dyspnea Do you want consulting provider notified?: Already Contacted 04/30/24 14:25 Consult Physician Routine Consulting Provider: Viviana Diez Consult Reason/Comments: weakness Do you want consulting provider notified?: Yes 04/30/24 14:32 Consult Physician Urgent Consulting Provider: Tiburcio Lantigua Consult Reason/Comments: Oncological care Do you want consulting provider notified?: Yes 05/01/24 15:26 Consult Physician Routine Consulting Provider: Johnathan Mars Consult Reason/Comments: ?RT lung mass? recently had RT to brain after resection of met Do you want consulting provider notified?: Yes Primary care physician: Mario Jimenez [facility] Course: Final diagnoses Metastatic squamous cell Ca of the lung with mets to brain status post craniotomy, radiation therapy.Large cavitating mass, measuring up to 10 cm, left upper lobe. Rule out secondary superimposed infection with abscess formation. Diffuse bilateral groundglass pulmonary infiltrates, possible pulmonary edema ,procalcitonin low. Acute hypoxic respiratory failure secondary to the above Left-sided weakness, improving. CT head showed no no acute abnormalities. Find ings consistent with encephalomalacia related to previous craniotomy and resection of brain tumor. Lactic acidosis improving. Urinary retention, requiring Albert catheter Hypertension Hyperlipidemia COPD, chronic Former nicotine dependence Hospital course: 04/30/24 Patient is a 73-year-old female with a known history of hyperlipidemia, metastatic squamous cell carcinoma of the lung with mets to brain status post recent craniotomy followed by radiation therapy. Patient is on Decadron at home which is being tapered down.. Patient presents to ER with complaints of generalized weakness and altered mental status and new onset left-sided weakness. As per family patient was also noted to have hypoxia with pulse ox 40%. CT of the brain on admission showed age-related appropriate senescent changes. No edema. Right parietal craniotomy defect and a decent encephalomalacia within the right parietal cortex and subcortical white matter. CTA chest showed 9 x 1 cm left upper lobe mass with air-fluid level consistent with large abscess or necrotic neoplasm. Diffuse groundglass densities in both lungs greatest in the left upper lobe consistent with acute pneumonia or pulmonary edema. Mild mediastinal and left hilar adenopathy. No evidence of PE. EKG showed sinus rhythm with occasional supraventricular premature complexes. Laboratory showed WBC 11.9 hemoglobin 11.9, platelets 178 sodium 140 potassium 108 bicarb is 28 BUN 29 and creatinine 0.54 blood sugar 136 and lactic acid 4.1 alk phos 133 albumin 3.2 Patient is currently on oxygen via nasal cannula at 3 L. 05/03/2024 evaluated by pulmonary, neurology, oncology with recommendations noted. Radiation oncology consulted as per oncology regarding potential radiation to primary lung mass with their recommendations pending. Denies chest pain, palpitations or shortness of breath. Requiring 4 L nasal cannula O2 to maintain O2 sats in the low 90s. Continues on empiric antibiotics .afebrile, 11.3. Blood cultures remain negative, renal function stable. Blood sugars controlled. 05/04/2024 Echo completed yesterday, reporting technically difficult study, poorly visualized endocardium, normal LV systolic function, mild mitral regurgitation with calcified mitral valve leaflets and annulus, mild aortic regurgitation. maintained on nebulized bronchodilators, antibiotics,continues to require 4 L nasal cannula to maintain O2 sats in the 90s. Radiation oncology consult in place, recommendations pending. Afebrile, WBC 11.3, hemoglobin 9.4, platelets 119. Sodium 135, potassium 4.2. Renal function stable. Radiation oncology consult in place, recommendations pending. Maintain empiric antibiotics, Decadron and seizure prophylaxis with Keppra. Aggressive pulmonary toileting with nebulized bronchodilators. Prognosis guarded given multiple complex medical issues. Evaluated by radiation oncology and reevaluated by oncology, discharge planning in progress for home with home care today. Appears comfortable, n no acute distress. Maintaining O2 sats in the low 90s on 4 L nasal cannula. Will require O2 at discharge as O2 sat on room air after ambulation 85%. Denies chest pain, palpitations or increase in shortness of breath. Patient and spouse eager to proceed home and to start treatment as per radiation oncology and oncology. IV push dexamethasone transitioning to oral Decadron. Decadron Rx will be ordered at DC per oncology. Outpatient follow-up appointments with both radiation oncology and oncology scheduled. The impression and plan of care has been dictated as directed. : I performed a history and examination of this patient, discussed the same with the dictator. I agree with the dictator's note ,documented as a scribe. Any additional findings or plans will be noted. Patient Condition at Discharge: Stable Plan - Discharge Summary New Discharge Prescriptions: New Ipratropium-Albuterol Nebulize [Duoneb 0.5 mg-3 mg/3 ml Soln] 3 ml INHALATION RT-QID #120 each Tamsulosin [Flomax] 0.4 mg PO PC-BRKFST #30 cap Continue lisinopriL 40 mg PO DAILY amLODIPine [Norvasc] 5 mg PO DAILY levETIRAcetam [Keppra] 500 mg PO BID Atorvastatin [Lipitor] 10 mg PO HS Discontinued dexAMETHasone [Decadron] See Taper PO DIRECTED Discharge Medication List Atorvastatin [Lipitor] 10 mg PO HS 04/30/24 [History] amLODIPine [Norvasc] 5 mg PO DAILY 04/30/24 [History] levETIRAcetam [Keppra] 500 mg PO BID 04/30/24 [History] lisinopriL 40 mg PO DAILY 04/30/24 [History] Ipratropium-Albuterol Nebulize [Duoneb 0.5 mg-3 mg/3 ml Soln] 3 ml INHALATION RT-QID #120 each 05/05/24 [Rx] Tamsulosin [Flomax] 0.4 mg PO PC-BRKFST #30 cap 05/05/24 [Rx] Follow up Appointment(s)/Referral(s): Tiburcio Lantigua [STAFF PHYSICIAN] - 05/07/24 11:30 am Mario Jimenez DO [Primary Care Provider] - 05/12/24 11:20 am [facility], [NON-STAFF] - Johnathan Mars MD [STAFF PHYSICIAN] - 1 Week (Office unavailable at time of discharge, please call as soon as possible.) Activity/Diet/Wound Care/Special Instructions: Patient requires hospital bed r/t requiring the head of the bed to be elevated more than 30 degrees most of the time to alleviate dyspnea caused by Lung CA with mets to brain. Requires home O2 r/t Lung CA with mets to brain. O2 sat 85% on room air after ambulation, will require 4 L nasal cannula O2 at home. Decadron order will be ordered as per oncology. Discharge/Stand Alone Forms: Who Do I Call? Discharge Disposition: HOME WITH HOME HEALTH SERVICES
--- NOTE | 2024-05-05 11:52 | P.PN ---
Subjective Progress Note Date: 05/05/24 Principal diagnosis: Metastatic pulmonary squamous cell carcinoma This is a 74-year-old female patient with metastatic squamous cell carcinoma of the lung. 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 Radiation therapy was done locally at [facility] on [facility] by Dr. Johnathan Mars. Following that, the patient was placed on Decadron. As Decadron was being weaned off, the patient developed some generalized weakness and altered mentation. Based on that, the dose was upped again by radiation oncology. This morning, the patient came into the emergency for new onset left-sided weakness. CAT scan of the brain was done in the emergency department that showed age-appropriate senescent changes. There was focal area of decreased density in the right parietal cortex and subcortical white matter consistent with encephalomalacia related to previous brain surgery. There is also evidence of craniotomy. There is also mild decreased density in the periventricular white matter change. No altered mentation. No seizure activity. CT angiogram of the chest was also done in the emergency department and the patient was found to have mild mediastinal and left hilar lymphadenopathy, a large cavitating mass measuring 9 x 8 cm in size in the left upper lobe with cystic air/fluid within the tumor and diffuse groundglass density involving both lungs more so on the right upper lobe. Note that the patient's PET/CT that was done on 04/18/2024 showed evidence consistent with metastatic disease including a left upper lobe cavitating mass with central cavitation and SUV of 24.3. Left breast parenchymal uptake with an SUV of 4.9, soft tissue nodule in the left chest sidewall at the level of the diaphragm with an SUV of 19.4, FDG uptake in the left axillary lymph node with an SUV of 2.7, left pulmonary hilar lymph node measuring SUV of 11.4 and left supraclavicular lymph node with an SUV of 8.6 and uptake in the left lower lobe along with some atelectasis. No skeletal uptake. No intra-abdominal uptake. At this point in time, the patient is on 3 L oxygen by nasal cannula with a pulse ox of 95%. The viral screen came back negative. proBNP level is 568. Lactic acid level was at 4.1 dropped down to 3.2. Electrolytes are within normal limits with a BUN of 29 and a creatinine of 0.5. Normal coagulation profile. WBC count 11.9 with a hemoglobin 11.9 and a platelet count of 179. The patient was restarted on Decadron 6 mg IV every 6 hours. Patient was also started on a combination of Rocephin and Zithromax. These are essentially empiric antibiotic coverage. proBNP level is at 568. On today's evaluation of 05/01/2024, seen the patient for a follow-up. The patient is on oxygen at 2 L/min nasal cannula with a pulse ox of 92%. She denies having any significant respiratory distress. As mentioned, the CAT scan of the chest that was done yesterday showed bilateral groundglass pulmonary infiltrates in addition to a cavitating left upper lobe mass with possible abscess formation. Patient also has some mild mediastinal and left hilar lymphadenopathy. A repeat chest x-ray was done today and it again showed a larg e 10 cm left upper lobe mass with secondary cavitation and questionable abscess formation. There is also diffuse pulmonary findings with pulm vascular congestion/interstitial infiltrates bilaterally. The viral screen was negative. The proBNP level was 568. Procalcitonin level is at 0.06. Echocardiogram was ordered. The patient remains on Rocephin and Zithromax. The patient remains on normal saline at rate of 10 cc an hour. The patient remains also on Decadron and Keppra. Afebrile for now. Seen by medical oncology. 05/02/2024, the patient on 2 L of oxygen by nasal cannula. No significant respiratory distress. Some heaviness in between the left lower extremity. Remains on Decadron. Remains on Keppra. Remains on bronchodilators. Remains on a combination of Rocephin and Zithromax. White cell count is at 12 with a hemoglobin of 10 and a platelet count of 125, BUN is 18 with a creatinine of 0.4 and a sodium levels of 137. Seen by oncology. Repeat chest x-ray from today shows a cavitating mass in the left upper lobe which is similar measuring about 10 cm in size in addition to diffuse interstitial changes bilaterally. Reevaluated today on 05/03/2024, patient is on 4 L nasal cannula, doing surprisingly well, better than expected, seems to be very comfortable. Remains on antibiotics, being followed by many consultants. WBC count today is 11.3 hemoglobin 9.4 basic metabolic profile is normal and renal profile is normal, blood cultures remain negative so far. Patient was reevaluated today on 05/04/2024, remains on 4 L nasal cannula, patient seems to be in no distress, seems to be quite comfortable still on bronchodilators, antibiotics, patient has not received any treatment for her squamous cell carcinoma/metastatic squamous cell carcinoma except radiation nery atment to the brain, patient had [employer] metastasis this was done after brain mass resection which was done at [facility]. At any rate the patient is supposed to have follow-up with Dr. Barcenas for chemotherapy/immunotherapy. She definitely needs to have follow-up with the medical oncologist upon discharge and should start treatment as soon as possibleLabs today show WBC count of 11.3 hemoglobin 9.4 basic metabolic profile is normal renal profile is normal Patient was evaluated today on 05/05/2024, remains on 4 L nasal cannula, O2 sat is 92%, patient seems to be comfortable, not in any distress,WBC count is 11.3 hemoglobin is 9.4 basic metabolic profile is renal profile is normal. Patient is being considered for possible discharge planning to have outpatient follow-up and start chemotherapy with medical oncology think that is appropriate, the shoulder that chemotherapy started the better for this patient Objective - Vital Signs Vital signs: Vital Signs Temp 97.6 F 05/05/24 03:40 Pulse 86 05/05/24 11:15 Resp 19 05/05/24 11:15 BP 116/58 05/05/24 11:15 Pulse Ox 92 L 05/05/24 11:15 FiO2 Intake & Output 05/04/24 05/05/24 05/05/24 18:59 06:59 18:59 Intake Total 1271 30 608 Output Total 1000 400 Balance 271 -370 608 Intake: IV 30 10 Invasive Line 2 10 Invasive Line 3 20 10 Oral [id number] Output: Urine 1000 400 Other: Voiding Method Indwelling Catheter Indwelling Catheter Indwelling Catheter - Exam General: Reveals 74-year-old female in no distress, on 4 L nasal cannula Skin: Skin is warm and dry and no rashes or lesions are noted. Eye: Pupils are equal, round and reactive to light, extra-ocular movements are intact; there is normal conjunctiva bilaterally. Ears, nose, mouth and throat: There are moist mucous membranes and no oral lesions. Neck: The neck is supple, there is no tenderness or JVD. Cardiovascular: There is a regular rate and rhythm. No murmur, rub or gallop is appreciated. Respiratory: Minich breath sounds at the bases minimal crackles at the bases no rhonchi no wheezes Gastrointestinal: Soft, non-distended, non-tender abdomen without masses or org anomegaly noted. There is no rebound or guarding present. Bowel sounds are unremarkable. Back: There is no tenderness to palpation in the midline. There is no obvious deformity. Musculoskeletal: Normal ROM, no tenderness, There is no pedal edema. There is no calf tenderness or swelling. No cords were appreciated. Neurological: CN II-XII intact, Cranial nerves III through XII are intact. Ther e are no obvious motor or sensory deficits. Coordination appears grossly intact. Speech is normal. Psychiatric: Cooperative, appropriate mood & affect, normal judgment. - Labs CBC & Chem 7: 05/03/24 06:41 05/03/24 06:41 Assessment and Plan Assessment: Impression Metastatic squamous cell carcinoma. The patient has a large cavitating mass in the left upper lobe in addition to brain metastases. Rule out secondary superimposed infection with abscess formation. Procalcitonin level has been low. The patient also developed diffuse bilateral pulmonary filtrates with secondary hypoxic respiratory failure. Left-sided weakness, CAT scan of the chest brain showing no acute abnormalities and the findings are consistent with encephalomalacia related to previous craniotomy and resection of brain tumor. The patient is post radiation therapy to the brain. No altered mentation weakness improving, continues to have some left lower extremity heaviness and weakness. Currently on Decadron. Craniotomy and resection of the parietal metastatic brain lesion followed by radiation therapy Acute hypoxic respiratory failure currently on 3 L of oxygen by nasal cannula. The patient has also developed bilateral diffuse groundglass pulmonary infiltrates. Hypertension Hyperlipidemia Plan: Continue Decadron Continue Keppra for seizure prophylaxis . Discharge planning and follow-up with oncology on outpatient basis and with radiation oncology Continue oxygen and titrate accordingly Will continue to follow Time with Patient: Less than 30
[2024-05-05] MEDS: TAMSULOSIN 0.4 MG CAP.ER.24H PO SCH (12:23)
[2024-05-05 13:28] VITALS: BMI 27.8
[2024-05-05 15:54] VITALS: PULSE 84
--- NOTE | 2024-05-05 16:16 | P.PN ---
Subjective Progress Note Date: 05/05/24 No acute events. Patient is resting comfortably in bed. She is reporting mild improvement in shortness of breath. SpO2 91% on 4 L. Plan is for discharge today. DME and home care orders have been placed Objective - Vital Signs Vital signs: Vital Signs Temp 97.6 F 05/05/24 03:40 Pulse 84 05/05/24 15:53 Resp 19 05/05/24 11:15 BP 116/58 05/05/24 11:15 Pulse Ox 92 L 05/05/24 11:15 FiO2 Intake & Output 05/04/24 05/05/24 05/05/24 18:59 06:59 18:59 Intake Total 1271 30 1786 Output Total 1000 400 Balance 271 -370 1786 Weight 71.214 kg Intake: IV 30 10 Invasive Line 2 10 Invasive Line 3 20 10 Oral 1271 [id number] Output: Urine 1000 400 Other: Voiding Method Indwelling Catheter Indwelling Catheter Indwelling Catheter - Constitutional General appearance: Present: average body habitus, no acute distress - EENT Eyes: Present: anicteric sclerae, EOMI ENT: Present: hearing grossly normal - Respiratory Details: breathing even and unlabored - Cardiovascular Details: skin warm and dry - Integumentary Integumentary: Absent: cyanotic - Musculoskeletal Musculoskeletal: Present: generalized weakness - Psychiatric Psychiatric: Present: A&O x's 3 - Labs CBC & Chem 7: 05/03/24 06:41 05/03/24 06:41 Assessment and Plan (1) Dyspnea Current Visit: Yes Status: Acute Priority: High Code(s): R06.00 - DYSPNEA, UNSPECIFIED SNOMED Code(s): 845916380 (2) Lung mass Current Visit: Yes Status: Acute Priority: High Code(s): R91.8 - OTHER NONSPECIFIC ABNORMAL FINDING OF LUNG FIELD SNOMED Code(s): 731637477 Plan: Ms. Aguilera is a very pleasant 74-year-old female with recently found left lung mass as well as brain mass status post resection of her brain tumor followed by radiation by Dr. Mars, scheduled to see Dr. Lantigua on 05/03/2024 to discuss systemic therapy, who is here for hypoxia and difficulty in breathing. -Reviewed records from [facility], path positive for metastatic squamous cell carcinoma of lung. -PET scan reviewed with the patient -NGS and Guardant ordered -Monitor for SVC syndrome. Rad onc following, plan to f/u on 05/10/24 for pall iative RT -Spoke with Dr. Mars today, will adjust dexamethsone to 4mg TID -F/u scheduled with Dr. Lantigua on 05/07/24 at 10:30 Spoke with IM regarding case, plan is for discharge home today, home care and DME orders have been placed. Appreciate their assistance Discussed above POC with patient and her and they are agreeable to plan. All of their questions were answered. Doctor attests: I performed a history and physical examination of this patient, developed impression and plan of care. Discussed with dictator. I agree with dictators note, documented as a scribe.
--- NOTE | 2024-05-07 07:32 | CDI ---
Documentation Clarification Form Date: 05/07/24 From: Erin Iraheta Admit Date: 04/30/2024 02:26:00 PM Patient Name: Kitty Aguilera Visit Number: [id number] Discharge Date: 05/05/2024 06:13:00 PM ATTENTION: The Clinical Documentation Specialists (CDI) and [facility] Coding Staff appreciate your assistance in clarifying documentation. Please respond to the clarification below the line at the bottom and electronically sign. The CDI & [facility] Coding staff will review the response and follow-up if needed. Please note: Queries are made part of the Legal Health Record. If you have any questions, please contact the author of this message via ITS. Dr. Mario Jimenez, The patients principal diagnosis the diagnosis that was chiefly responsible for the admission - has not been clearly identified and clarification is requested. The patient presented with the following: metastaticsquamous cell Caof the lung withmets to brainstatus post craniotomy,radiation therapy. Large cavitatingmass, measuring up to 10 cm, left upper lobe. Rule outsecondary superimposedinfectionwithabscessformation. Diffuse bilateral groundglasspulmonary infiltrates,possiblepulmonary edema ,procalcitonin low. History/Risk factors: COPD, Left hemiplegia, brain mets, HTN Clinical Indicators: Rule outsecondary superimposedinfectionwithabscessformation. Diffuse bilateral groundglasspulmonary infiltrates,possiblepulmonary edema ,procalcitonin low. Lab findings: WBC 11.9, Neutrophils 10.6, Lactic acid 4.1, Procalcitonin 0.06, BNP 568 Radiology findings: 9.0 x 1 cm left upper lobemasswith air-fluid level consistent with large abscessornecroticneoplasm. Diffuse groundglassdensityin both lungs greatest in the right upper lobe consistent with acutepneumoniaorpulmonary edema. Vital Signs: Treatment: IV Zithromax, Pneumonia protocal, IV Rocephin, IV Dexamethasone, IV fluids, In your professional opinion, can you please clarify which diagnosis, after study, was the reason chiefly responsible for the admission? [ ] Pneumonia, please specify [ ] Left upper lobe cancer [ ] Lung abscess [ ] Other, please specify [ ] Unable to determine MTDD
== END 2024-05-05 18:13 | disposition home health service (06) | DRG 180 ==
LOC: EC 12:00 → 1SOBS 14:26 → 3SCARD 16:03
PROVIDERS: ADMIT Family Medicine; ATTEND Family Medicine
DX: C34.12 Malignant neoplasm of upper lobe, left bronchus or lung (principal); J18.9 Pneumonia, unspecified organism; J96.01 Acute respiratory failure with hypoxia; E87.20 Acidosis, unspecified; J44.0 Chronic obstructive pulmonary disease with (acute) lower respiratory infection; G81.94 Hemiplegia, unspecified affecting left nondominant side; C79.31 Secondary malignant neoplasm of brain; J98.11 Atelectasis; G93.89 Other specified disorders of brain; R56.9 Unspecified convulsions; I10 Essential (primary) hypertension; I08.0 Rheumatic disorders of both mitral and aortic valves; R59.0 Localized enlarged lymph nodes; E78.5 Hyperlipidemia, unspecified; R33.9 Retention of urine, unspecified; Z79.899 Other long term (current) drug therapy; Z87.891 Personal history of nicotine dependence; Z92.3 Personal history of irradiation; Z96.641 Presence of right artificial hip joint; Z71.3 Dietary counseling and surveillance
CPT/HCPCS: 36415; 51798; 70450; 71045; 71275; 80048; 80053; 81001; 83605; 83735; 83880; 84145; 85025; 85610; 85730; 87040; 87449; 87636; 93005; 93306; 94640; 94760; 96365; 96366; 96368; 96375; 96376; 99285